=== PATIENT | male | born 1955 | race Caucasian/White ===

== ENCOUNTER 2020-04-29 06:33 | Inpatient (IN) ==
--- NOTE | 2020-04-23 15:51 | Anesthesiology Consultation ---
Date of Service April 23, 2020 Assessment & Plan (1) Encounter for pre-operative examination: Per PAT assessment on 04/23: Travel screen negative. No known COVID-19 positive contacts. No history of COVID-19 testing. No current COVID-19 related symptoms. Chart Review Chart Review: Acceptable Risk for Surgery and Patient NOT seen in Pre Admission Testing History Surgery Operation Date: 04/29/20 09:00 Proposed Procedures p Left Posterior Total Hip Arthroplasty - Hema Chambers DO Height/Weight Height: 6 ft 0.5 in Weight: 120.202 kg Allergies Allergy/AdvReac Type Severity Reaction Status Date / Time No Known Drug Allergies Allergy Verified 04/23/20 14:48 Medications Home Medications Medication Instructions Recorded Confirmed Last Taken allopurinol 300 mg PO QAM 04/23/20 04/23/20 Unknown amlodipine 5 mg PO QAM 04/23/20 04/23/20 Unknown lisinopril 20 mg PO QAM 04/23/20 04/23/20 Unknown simvastatin 20 mg PO QAM 04/23/20 04/23/20 Unknown tramadol 50 mg PO BID PRN 04/23/20 04/23/20 Unknown Past Medical History Medical History Erectile dysfunction (Chronic) Gouty arthritis (Chronic) Hyperlipidemia (Chronic) Hypertension (Chronic) Plantar fasciitis (Chronic) Polyarthralgia (Chronic) Past Family History Family History Mother Myocardial infarction Diabetes Father Prostate cancer Diabetes Denies family history of Colon cancer Ovarian cancer Breast cancer Colorectal cancer Past Surgical History Surgical History Hx of colonoscopy S/P vasectomy Social History Smoking Status: Never smoker Do You Dip or Chew Tobacco: No Hx Alcohol Use: Yes Alcohol type: beer alcohol intake frequency: 3 or more drinks per day Hx Substance Use: No substance use type: does not use Testing Laboratory Results 04/16/20 WBC 9.76 H/H 13.0/38.2 PLATELETS 274 SODIUM 132 POTASSIUM 4.2 CHLORIDE 102 CO2 23 BUN 16 CREATININE 0.99 GLUCOSE 110 HGBA1C 5.0% Electrocardiogram Date: 04/02/20 SR at 82bpm.
--- NOTE | 2020-04-28 09:20 | History & Physical Report ---
Date of Service April 29, 2020 Assessment & Plan (1) Degenerative joint disease of left hip: I have indicated the patient for left total hip replacement. The risks, benefits and complications of surgery were explained to the patient which include but not limited to infection, acute blood loss, DVT/PE, injury to nerves, vessels, bone, soft tissue, arthrofibrosis, chronic pain, failure of the prosthesis, hip dislocation, leg length discrepancy, need for additional surgery, cardiac and pulmonary events and . The patient wished to proceed with surgery and informed consent was obtained at this time. We will plan for ASA BID post-operatively for DVT prophylaxis. Upon discharge the patient will be discharged home with home health services. Appropriate clearances by PCP were obtained. History of Present Illness Chief Complaint: Left hip pain/djd Primary Care Provider: Garry Perez DO The patient is a 65 year old male who presents with complaints of severe left hip pain and DJD. The patient has failed outpatient conservative treatments to this point which included NSAIDs, IA corticosteroid injection, home exercise/walking program. The patient's pain and limited function have progressed to the point where they severely hinder their activities of daily living and they no longer tolerate exercise programs. They are requesting to proceed with total hip replacement surgery. Allergies Allergy/AdvReac Type Severity Reaction Status Date / Time No Known Drug Allergies Allergy Verified 04/29/20 06:59 Home Medications Home Medications Medication Instructions Recorded Confirmed Type allopurinol 300 mg PO QAM 04/23/20 04/29/20 History amlodipine 5 mg PO QAM 04/23/20 04/29/20 History lisinopril 20 mg PO QAM 04/23/20 04/23/20 History simvastatin 20 mg PO QAM 04/23/20 04/23/20 History tramadol 50 mg PO BID PRN 04/23/20 04/29/20 History multivitamin 1 cap PO BID 04/29/20 04/29/20 History sildenafil [Viagra] 50 mg PO DAILY 04/29/20 04/29/20 History Past Med/Surg History Medical History Erectile dysfunction (Chronic) Gouty arthritis (Chronic) Hyperlipidemia (Chronic) Hypertension (Chronic) Plantar fasciitis (Chronic) Polyarthralgia (Chronic) Surgical History Hx of colonoscopy S/P vasectomy Family History Mother Myocardial infarction Diabetes Father Prostate cancer Diabetes Denies family history of Colon cancer Ovarian cancer Breast cancer Colorectal cancer Social History Preferred Language: Setswana Communication Ability: Effective Visual Impairment: No Limitations Hearing Ability: Normal Rubber Trimmer Required: No Beliefs That Will Affect Care: None marital status: Current Living Situation: Spouse current occupational status: employed current occupation: Self-employed mechanical contractor Other Information That Helps Us Care for You: No Feels Safe at Home: Yes Safety Concerns: Feels Safe At This Time Smoking Status: Never smoker Age Quit Using Tobacco: 54 ; packs per day: 1 ; Do You Dip or Chew Tobacco: No ; Second Hand Exposure: No ; Hx Alcohol Use: Yes Alcohol type: beer Alcohol Intake Frequency: Daily Hx Substance Use: No Childhood Exposure to Second-Hand Smoke: No Dental Care, Regularly: No Physical Activity Frequency: Other Physical Activity Frequency Comment: Limited by physical condition, tries to walk. Review of Systems Review of Systems: All systems reviewed & are unremarkable except as noted in HPI & below Constitutional: as per Subjective / HPI Physical Exam Physical Exam: LLE NVSI +EHL/FHL/TA/GS SILT grossly, +2 DP pulse, compartments soft NT, limited painful ROM of the hip, antalgic gait. Constitutional: WD/WN, vitals as above Eyes: PERRL, conjunctivae normal, anicteric sclerae ENMT: external ear and nose normal, oropharynx normal Neck: trachea midline, no thyromegaly Respiratory: normal respiratory effort, lungs clear to auscultation Cardiovascular: RRR, no murmur, no edema Gastrointestinal (Abdomen): normal bowel sounds, soft, nontender, no hepatosplenomegaly Musculoskeletal: no cyanosis or clubbing, extremities motor strength 5/5 Skin: no rashes, warm and dry Neurologic: patellar DTR's 2+ bilat, sensation intact Psychiatric: A+Ox3, euthymic affect Lymphatic: no cervical or axillary lymphadenopathy Results & Data Results & Data ([facility]) Diagnostic Findings Multiple views of the hip demonstrates severe DJD with complete loss of the cayla nt space. +osteophytes, +sclerosis, +subchondral cysts.
[~2020-04-29 06:33] MED LIST: CEFAZOLIN 3000MG 72.5 ML IV SCH; CeleBREX 200 MG CAP PO SCH; FAMOTIDINE 20 MG TAB PO SCH; GABAPENTIN 300 MG CAP PO SCH; LR 500ML BOLUS, THEN 15ML/HR IV SCH; METOCLOPRAMIDE HCL 10 MG TABLET PO SCH; OXYCODONE HCL 10 MG TABCR (OXYCONTIN) PO SCH; ROPIVACAINE 0.5% HCL/PF 150 MG, BUPIVACAINE 0.5% MPF 30 ML, EPINEPHrine 30MG/30ML (OR U... INSTIL SCH; TRANEXAMIC ACID 1,000 MG **IV Intra-op IV SCH; TRANEXAMIC ACID 1,000 MG **IV Pre-op IV SCH; dexAMETHasone 4 MG TAB PO SCH
[2020-04-29 07:19] LABS: Prothrombin Time 10.4 Seconds (9.0-12.0)
[2020-04-29] MEDS ORDERED: BUPIVACAINE 0.5 % 5 MG/1 ML PF 10ML VIAL ONE (07:32)
[2020-04-29] MEDS ORDERED: ORTHO JOINT ANESTHETIC ONE (08:10)
[2020-04-29] MEDS ORDERED: BACITRACIN INJ 50,000 UNIT VIAL ONE (08:10)
[2020-04-29] MEDS ORDERED: ONDANSETRON INJ 2 MG/ML 2 ML VIAL IV PRN ×2 (08:15→12:35)
[2020-04-29] MEDS ORDERED: ATROPINE SULFATE 0.1 MG/ML 10ML SYR IV PRN (08:15)
[2020-04-29] MEDS ORDERED: fentaNYL citrate 100 MCG/2 ML VIAL IV PRN (08:15)
[2020-04-29] MEDS ORDERED: ePHEDrine sulfate 50 MG/ML AMP IV PRN (08:15)
[2020-04-29] MEDS ORDERED: LIDOCAINE 2% 20 MG/ML 5 ML SYR IV ONE (08:46)
[2020-04-29] MEDS ORDERED: PROPOFOL IV EMULSION 10 MG/ML 20 ML VIAL IV ONE ×3 (08:46→10:57)
[2020-04-29] MEDS ORDERED: fentaNYL citrate 100 MCG/2 ML VIAL ONE (08:47)
[2020-04-29] MEDS ORDERED: MIDAZOLAM HCL 1 MG/ML 2ML VIAL ONE (08:47)
[2020-04-29] MEDS ORDERED: LIDOCAINE HCL 2% 2 ML VIAL/AMP(20MG/ML) INFIL ONE ×2 (08:50)
--- NOTE | 2020-04-29 08:56 | History & Physical Bridge Note ---
Date of Service April 29, 2020 History & Physical Bridge Note I have examined the patient, reviewed the History & Physical and in the interval since the performance of the History & Physical I have noted the following changes of clinical significance: no changes noted
[2020-04-29] MEDS ORDERED: KETAMINE HCL INJ 50 MG/ML 10 ML VIAL ONE (09:43)
--- NOTE | 2020-04-29 10:49 | Post Operative Brief Note ---
Immediate Post Op Note v1 Date of Surgery April 29, 2020 Pre & Post Diagnosis Operation Date: 04/29/20 09:10 Pre-Op Diagnosis: Unilateral Primary Osteoarthritis, Left Hip Post-Op Diagnosis: Unilateral Primary Osteoarthritis, Left Hip I identified the patient and participated in the time-out.: Yes Procedure Operation Date: 04/29/20 09:10 Actual Procedures p Left Posterior Total Hip Arthroplasty(Left) - Hema Chambers DO Surgeon Hema Chambers DO Fitter Up Charles Carpio Estimated Blood Loss 225 Findings Consistent with Post-Op Diagnosis Fluids 1450 Specimens femoral head Anesthesia Type Spinal MAC Complications none Disposition Disposition: Recovery Room Overlapping Procedure I was present for: the critical portions of procedure. I was immediately available: during the entire case. Back up surgeon: was not required during procedure.
[2020-04-29] MEDS ORDERED: PHENYLEPHRINE HCL 10 MG/ML VIAL ONE (10:52)
--- NOTE | 2020-04-29 10:54 | Operative Report ---
Post Operative Report Pre & Post Diagnosis Operation Date: 04/29/20 09:10 Pre-Op Diagnosis: Unilateral Primary Osteoarthritis, Left Hip Post-Op Diagnosis: Unilateral Primary Osteoarthritis, Left Hip I identified the patient and participated in the time-out.: Yes Procedure Operation Date: 04/29/20 09:10 Actual Procedures p Left Posterior Total Hip Arthroplasty(Left) - Hema Chambers DO Surgeon Hema Chambers DO Computerized [employer] Recorder Charles Carpio Estimated Blood Loss 225 Findings Consistent with Post-Op Diagnosis Fluids 1450 cc LR Specimens femoral head Anesthesia Type Spinal MAC Complications none Disposition Disposition: Recovery Room Indications The patient is a 65-year-old male who presents with severe progressive right hip DJD who has failed outpatient conservative treatments. I indicated the patient for a total hip replacement and the risks and benefits were explained in detail which included but not limited to infection, bleeding, blood clot, damage to surrounding bone, nerves, vessels, soft tissue, hip dislocation, failure of the prosthesis, leg length discrepancy, need for additional surgery and . The patient agreed to proceed with replacement of the hip and informed consent was obtained. Appropriate clearances were obtained. Description of Procedure COMPONENTS USED: Jm Biomet hip system: Acetabulum size 58 G7 osteo-ti, femur size 12.5 extended offset, femoral head 36+7, liner 5836, acetabular screw 30 mm x 1. Following induction of adequate spinal anesthesia, the patient was transferred to the OR table and placed in lateral decubitus position with right hip down. The left hip was prepped and draped in the typical sterile fashion. A timeout was performed, patient identified and site matheus confirmed. Appropriate antibiotics were given. A standard posterolateral/Katja-Langenbeck incision was made. Subcutaneous tissue was sharply dissected. Electrocautery was utilized for hemostasis. The fascia was incised throughout the length of the wound and retracted with the Charnley retractor. The bursa was taken down and the short external rotators were identified. The piriformis was tagged with #1 Vicryl. The short external rotators and capsule were divided from the posterior aspect of the femur using electrocautery. The posterior capsule was tagged with #1 Vicryl. Both external rotators and posterior capsule were swept posterior and protected, along with protecting the sciatic nerve. The hip was dislocated by flexion and internally rotation in a controlled manner and exposure of the femoral neck was gained with an old-style Hohmann and a blunt cobra retractor. A femoral cutting guide was utilized for making the appropriate level femoral neck cut with reciprocating saw. The femoral head was removed, measured and reserved on the back table. Next, attention was turned to the acetabulum. A posterior and anterior offset retractor was placed to gain adequate exposure. Acetabular labrum as well as posterior capsule elements were removed using electrocautery and forceps. Fovea centralis was cleared of all soft tissue. Sequential reaming was performed starting at 48 mm and carried up to a 57 mm and decision was made to proceed with impaction of a 50 mm G7 osteo-ti metal cup. This was impacted and held using a single 30 mm bone screw. The trial aceta bular liner was placed at this time. Next, attention was turned to the proximal femur where a Bovie and pickup was used to further clear short external rotators from their insertion on the femur. Box osteotome and canal finder was used to gain access to the femoral canal and the lateral reamer on power was used to further open the proximal lateral canal. Sequentially rasping was carried up to a 12.5 which gave good fit and fill of the proximal femur. A trial reduction was carried out with a extended offset femoral neck component a 36+0 mm femoral head. Sequential trialing of neck length were performed a 36+7 was found to be stable in all degrees of rotation with no [id number] impingement. The hip was dislocated, trial components were removed and access to the acetabulum was re-established. The trial liner was removed and the cup was irrigated to ensure all debris was removed. The final acetabular liner was inserted and properly seated in the cup. Access to the femur was once more gained and the size 12.5 femoral stem with extended offset was impacted into position. The hip was once more assessed with the 36+ mm femoral head. Stability was accessed and found to be excellent with equal leg lengths. The hip was dislocated for the last time and the final 36+ ceramic femoral head was impacted in place and the hip was reduced. Range of motion was checked once again and found to be stable. A Betadine soak was performed. After 3 minutes, the hip was once more irrigated with copious sterile saline solution with bacitracin. The leslie-incisional soft tissue was injected utilizing [place] ortho mix which includes a combination of Ropivicaine 0.5% 150mg, Bupivicaine 0.5%/Epinephrine 1:200,000 30ml, Toradol 30mg, Dexamethasone 4mg, Ketamine 10mg, Clonidine 100mcg and NSS 30ml Orthomix solution. The piriformis, external rotators and capsule were repaired to the greater trochanter through bone tunnels using #5 FiberWire. The fascia was closed using #1 Vicryl, subcutaneous tissue was closed using 2-0 Vicryl, and skin was closed with annemarie. Sterile dressings were applied which included Silverlon. The patient tolerated the procedure well and was transported to PACU in stable condition. Due to the complex nature of the procedure, the entire surgery was performed with the operational assistance of Charles Carpio PA-C. The sales assistant displays, under direct supervision, was involved in the actual performance of all aspects of the surgical procedure including patient positioning, hemostasis, tissue retraction, instrument management and wound closure. I attest to the content of the Intraoperative Record and any orders documented therein. Any exceptions are noted below.
--- NOTE | 2020-04-29 11:46 | XRay Report ---
AP PELVIS, CROSSTABLE LATERAL LEFT HIP History: Left total hip arthroplasty. Degenerative arthritis. Postop. FINDINGS: The patient is status post a left total hip arthroplasty. The hardware is intact. No fractu re or dislocation. Skin annemarie are in place. IMPRESSION: Left total hip arthroplasty. No evidence for hardware complication. ACT 112: Negative or not required by law. Electronically signed by: Celso Freeman M.D. 04/29/2020 11:45 AM
[2020-04-29] MEDS ORDERED: MAGNESIUM HYDROXIDE SUSP 30 ML UDC PO PRN (12:35)
[2020-04-29] MEDS ORDERED: HYDROmorphone INJ 0.5 MG/0.5 ML SYR IV PRN (12:35)
[2020-04-29] MEDS ORDERED: CEFAZOLIN 3000MG/72.5 ML BAG IV SCH (12:35)
[2020-04-29] MEDS ORDERED: bisacodyL 10 MG SUPP PR PRN (12:35)
[2020-04-29] MEDS ORDERED: NALOXONE HCL 0.4 MG/1 ML VIAL/CARP IV PRN (12:35)
[2020-04-29] MEDS ORDERED: METOCLOPRAMIDE HCL INJ 5 MG/ML 2 ML VIAL IV PRN (12:35)
[2020-04-29] MEDS: ACETAMINOPHEN 500 MG TAB PO SCH ×2 (13:55→21:56)
[2020-04-29] MEDS: SODIUM CHLORIDE 0.9% 1000ML 1,000 ML IV SCH ×2 (13:55→23:37)
--- NOTE | 2020-04-29 14:24 | Anesthesiology Progress Note ---
Date of Service April 29, 2020 Anesthesia Post Procedure Vital Signs Vital Signs: Temp Pulse Pulse Resp BP Pulse Ox 04/29/20 13:28 70 18 146/78 H 100 04/29/20 13:06 36.5 C 75 18 143/83 H 99 04/29/20 12:40 36.7 C 76 18 125/76 100 04/29/20 12:19 69 18 129/71 97 04/29/20 12:10 36.4 C L 65 20 125/75 97 04/29/20 12:00 68 20 123/79 97 04/29/20 11:50 65 18 123/71 97 04/29/20 11:40 73 17 129/77 97 04/29/20 11:30 78 14 128/67 97 04/29/20 11:20 77 12 108/72 99 04/29/20 11:10 36.2 C L 82 16 104/64 99 04/29/20 07:13 36.8 C 90 16 150/82 H 97 Pain Intensity Bilateral Ankle: Pain Intensity: 0 Transfer of Care Handoff Completed per policy Notes Mental Status: alert / awake / arousable and participated in evaluation Patient Amnestic to Procedure: Yes Nausea / Vomiting: adequately controlled Pain: adequately controlled Airway Patency, RR, SpO2: stable & adequate BP & HR: stable & adequate Hydration State: stable & adequate Neuraxial Anesthesia: was administered and sensory block is resolving Anesthetic Complications: no major complications apparent and Pt Satisfied with anesthetic care
--- NOTE | 2020-04-29 15:40 | Orthopedic Progress Note ---
Date of Service April 29, 2020 Assessment & Plan (1) Degenerative joint disease of left hip: s/p Left TOBIAS -ancef x 24 -DVT ppx: SCDs, TEDs, ASA BID -WBAT LLE -Posterior hip precautions -PT/OT -PO XR demonstrates well aligned well fixed total hip prothesis without fracture/dislocation -am labs -DC planning Admission and Anticipated Discharge Date Admission Date: April 29, 2020 Subjective Post Operative Progress Note Patient seen sitting up in bed, comfortable, denies complaints, pain well controlled, no acute issues. Review of Systems Review of Systems: All systems reviewed & are unremarkable except as noted in HPI & below Constitutional: as per Subjective / HPI Physical Exam Physical Exam: LLE NVSI +EHL/FHL/TA/GS SILT grossly, +2 DP pulse, compartments soft NT, dressing cdi. Constitutional: WD/WN, vitals as above Results & Data ([place]) Vital Signs (Past 12 Hours) Vital Signs Temp Pulse Pulse Resp BP Pulse Ox 04/29/20 13:28 70 18 146/78 H 100 04/29/20 13:06 36.5 C 75 18 143/83 H 99 04/29/20 12:40 36.7 C 76 18 125/76 100 04/29/20 12:19 69 18 129/71 97 04/29/20 12:10 36.4 C L 65 20 125/75 97 04/29/20 12:00 68 20 123/79 97 04/29/20 11:50 65 18 123/71 97 04/29/20 11:40 73 17 129/77 97 04/29/20 11:30 78 14 128/67 97 04/29/20 11:20 77 12 108/72 99 04/29/20 11:10 36.2 C L 82 16 104/64 99 04/29/20 07:13 36.8 C 90 16 150/82 H 97
[2020-04-29] MEDS: CEFAZOLIN 3,000 MG in DEXTROSE 5% 50 ML IV SCH (17:03)
[2020-04-29] MEDS: KETOROLAC TROMETHAMINE 15 MG/ML VIAL IV SCH (20:33)
[2020-04-29] MEDS: DOCUSATE SODIUM 100 MG CAP PO SCH (20:34)
[2020-04-29] MEDS ORDERED: SENNA 8.6 MG TAB PO SCH (21:00)
[2020-04-29] MEDS: OXYCODONE HCL IR 5 MG TAB (IMMEDIATE RELEASE) PO PRN (23:38)
[2020-04-30] MEDS: KETOROLAC TROMETHAMINE 15 MG/ML VIAL IV SCH ×3 (02:13→13:39)
[2020-04-30] MEDS: CEFAZOLIN 3,000 MG in DEXTROSE 5% 50 ML IV SCH (02:13)
[2020-04-30 05:09] LABS: Hematocrit (blood only) 31.1 % (42-52); Hemoglobin 10.5 g/dL (14.0-18.0); Immature Granulocytes # (auto) 0.02 K/uL (0.00-0.02); Immature Granulocytes % (auto) 0.2 %; Lymphocytes # (auto) 0.53 K/uL (1.2-3.4); Lymphocytes % (auto) 5.6 %; Mean Corpuscular Hemoglobin 34.3 pg (25-34); Mean Corpuscular Hgb Conc 33.8 g/dL (32-36); Mean Corpuscular Volume 101.6 fL (80-100); Mean Platelet Volume 10.4 fL (7.4-10.4); Monocytes # (auto) 0.44 K/uL (0.11-0.59); Monocytes % (auto) 4.6 %; Neutrophils # (auto) 8.54 K/uL (1.4-6.5); Neutrophils % (auto) 89.6 %; Platelet Count 162 K/uL (130-400); RDW Coefficient of Variation 12.6 % (11.5-14.5); RDW Standard Deviation 46.1 fL (36.4-46.3); Red Blood Count 3.06 M/uL (4.7-6.1); White Blood Count 9.53 K/uL (4.8-10.8)
[2020-04-30 05:34] LABS: BUN Creatinine Ratio 21.1 (10-20); Calcium 7.8 mg/dl (8.5-10.1); Creatinine Clr Calc Pharmacy 95.1 ml/min; Est GFR (African American) 84.9; Est GFR (Non-African American) 73.3; Potassium 4.3 mmol/L (3.5-5.1)
[2020-04-30] MEDS: ACETAMINOPHEN 500 MG TAB PO SCH ×2 (05:55→13:39)
--- NOTE | 2020-04-30 07:36 | Orthopedic Progress Note ---
Date of Service April 30, 2020 Assessment & Plan (1) Degenerative joint disease of left hip: s/p Left TOBIAS POD#1 -ancef x 24 -DVT ppx: SCDs, TEDs, ASA BID -WBAT LLE -Posterior hip precautions -PT/OT -PO XR demonstrates well aligned well fixed total hip prothesis without fracture/dislocation -am labs - as above, hgb 10.5 -DC planning - home with Admission and Anticipated Discharge Date Admission Date: April 29, 2020 Subjective Post Operative Progress Note Patient seen sitting up in bed, comfortable, denies complaints, pain well controlled, no acute issues. Denies F/C/N/V/SOB/CP. Review of Systems Review of Systems: All systems reviewed & are unremarkable except as noted in HPI & below Constitutional: as per Subjective / HPI Physical Exam Physical Exam: LLE NVSI +EHL/FHL/TA/GS SILT grossly, +2 DP pulse, compartments soft NT, dressing cdi. Constitutional: WD/WN, vitals as above Results & Data ([place]) Vital Signs (Past 12 Hours) Vital Signs Temp Pulse Resp BP Pulse Ox 04/30/20 03:27 36.6 C 66 16 133/71 97 04/29/20 23:32 36.6 C 76 16 156/91 H 97 Laboratory Results 04/30/20 04/30/20 04/29/20 Range/Units 04:22 04:22 06:53 WBC 9.53 (4.8-10.8) K/uL RBC 3.06 L (4.7-6.1) M/uL Hgb 10.5 L (14.0-18.0) g/dL Hct 31.1 L (42-52) % MCV 101.6 H (80-100) fL MCH 34.3 H (25-34) pg MCHC 33.8 (32-36) g/dL RDW Std Deviation 46.1 (36.4-46.3) fL RDW Coeff of Willie 12.6 (11.5-14.5) % Plt Count 162 (130-400) K/uL MPV 10.4 (7.4-10.4) fL Immature Gran % (Auto) 0.2 % Neut % (Auto) 89.6 % Lymph % (Auto) 5.6 % Mcnairy % (Auto) 4.6 % Eos % (Auto) 0.0 % Baso % (Auto) 0.0 % Immature Gran # (Auto) 0.02 (0.00-0.02) K/uL Neut # (Auto) 8.54 H (1.4-6.5) K/uL Lymph # (Auto) 0.53 L (1.2-3.4) K/uL Mcnairy # (Auto) 0.44 (0.11-0.59) K/uL Eos # (Auto) 0.00 (0-0.5) K/uL Baso # (Auto) 0.00 (0-0.2) K/uL Sodium 135 L (136-145) mmol/L Potassium 4.3 (3.5-5.1) mmol/L Chloride 106 (98-107) mmol/L Carbon Dioxide 23 (21-32) mmol/L Anion Gap 6.0 (3-11) BUN 22 H (7-18) mg/dl Creatinine 1.06 (0.6-1.4) mg/dl Est Cr Clr Drug Dosing 95.1 ml/min Est GFR ( Amer) 84.9 Est GFR (Non-Af Amer) 73.3 BUN/Creatinine Ratio 21.1 H (10-20) Glucose 134 H (70-99) mg/dl Calcium 7.8 L (8.5-10.1) mg/dl Blood Type A Positive Antibody Screen NEGATIVE
[2020-04-30] MEDS: DOCUSATE SODIUM 100 MG CAP PO SCH (08:41)
[2020-04-30] MEDS: OXYCODONE HCL IR 5 MG TAB (IMMEDIATE RELEASE) PO PRN (08:43)
[2020-04-30] MEDS ORDERED: allopurinoL 300 MG TAB PO SCH (09:00)
[2020-04-30] MEDS ORDERED: AMLODIPINE BESYLATE 5 MG TAB PO SCH (09:00)
[2020-04-30] MEDS ORDERED: SIMVASTATIN 20 MG TAB PO SCH (09:00)
[2020-04-30] MEDS ORDERED: MULTIVITAMIN TAB PO SCH (09:00)
[2020-04-30] MEDS ORDERED: ASPIRIN 325 MG ECTAB PO SCH (09:00)
[2020-04-30] MEDS ORDERED: lisinopriL 20 MG TAB PO SCH (09:00)
--- NOTE | 2020-04-30 17:02 | Discharge Summary ---
Date of Service April 30, 2020 Admission HPI Per Admitting Provider The patient is a 65 year old male who presents with complaints of severe left hip pain and DJD. The patient has failed outpatient conservative treatments to this point which included NSAIDs, IA corticosteroid injection, home exercise/walking program. The patient's pain and limited function have progressed to the point where they severely hinder their activities of daily living and they no longer tolerate exercise programs. They are requesting to proceed with total hip replacement surgery. Principal Diagnosis Left total hip replacement Discharge Exam LLE NVSI +EHL/FHL/TA/GS SILT grossly, +2 DP pulse, compartments soft NT, dressing cdi. Constitutional WD/WN, vitals as above Discharge Data Allergies Allergy/AdvReac Type Severity Reaction Status Date / Time No Known Drug Allergies Allergy Verified 04/29/20 06:59 Consultations 04/30/20 08:00 Consult Case Management - Discharge Planning Routine Procedures Performed Operation Date: 04/29/20 09:10 Actual Procedures p Left Posterior Total Hip Arthroplasty(Left) - Hema Chambers DO Hospital Course (1) Degenerative joint disease of left hip: The patient is a 65 -year-old male who presents with long standing history of severe left hip DJD and failed outpatient conservative treatments. The patient's symptoms have progressed to the point where it has been difficult to perform even normal activities of daily living. I indicated the patient for a left total hip arthroplasty, the risks, benefits and complications of the procedure include but not limited to infection, bleeding, damage to bone, nerves, vessels, surrounding soft tissue, may develop blood clots, loss of function, leg length discrepancy, dislocation, failure of the components, loosening of the components, the need for additional surgery and . The patient wished to proceed with surgery at this time and informed consent was obtained. Hospital Course: On 04/29/20 the patient was taken to the operating room, adequate anesthesia adm inistered and underwent a left total hip arthroplasty. The patient tolerated the procedure well and was taken to the PACU in stable condition. Post- operatively the patient was started on a DVT ppx medication and given appropriate IV antibiotics. Consults were placed to physical therapy, occupational therapy and case management. On POD#1, the patient did well overnight and their pain was well controlled. Labs were drawn and the Hgb was 10.5. The patient progressed well with PT. Dressings were changed at this time and the incision was clean, dry and intact. The patients hospital stay was relatively uneventful and they were deemed stable by the orthopedic team and consultants to be discharged home with HH on 04/30/20. Discharge Instructions: Upon discharge the patient may weight bear as tolerates through their operative extremity. They were instructed to keep the incision clean and dry at all times. The patient may shower but should not submerge the incision, avoid bathing, pools and hot tubes. The patient was given a script for pain medication and should take as instructed. The patient was given a script for DVT ppx ASA BID and should take as directed. The patient was instructed to not drive or travel for long distances until cleared to do so. If the patient develops any symptoms of fevers, chills, nausea, vomiting, increased redness, swelling, pain or drainage from the surgical site, they should notify the office and/or proceed to the nearest emergency room. The patient should follow up in 10-14 days after surgery for their routine post-operative follow-up appointment and should call the office to confirm the date and time. s/p Left TOBIAS POD#1 -ancef x 24 -DVT ppx: SCDs, TEDs, ASA BID -WBAT LLE -Posterior hip precautions -PT/OT -PO XR demonstrates well aligned well fixed total hip prothesis without fracture/dislocation -am labs - as above, hgb 10.5 -DC planning - home with Total Time Total Time Spent Total Time Spent (In Minutes): 30 Discharge Plan Discharge Items Patient Disposition: Home - Home Health Services Reason For Visit: Unilateral Primary Osteoarthritis, Left Hip Discharge Diagnosis: Left total hip replacement Condition on Discharge: Good Activity: Per Instructions section Lifting: Wait until after follow-up appointment Bathing: Keep incision dry Bathing Comment: No bathing pools or hot tubs Sexual Activity: Wait until after follow-up appointment Exercise/Sports: Wait until after follow-up appointment Driving/Machine Use: No driving Weightbearing: Full weightbearing Non-emergency contact: Primary Care Provider and Surgeon Call non-emergency contact if: you have any medication questions, your symptoms worsen, your pain is not controlled, your pain is worsening, your pain is unu sual for you, your pain is concerning for you, you have a fever, your temperature is above 101, your wound has increased redness, your wound has increased drainage and your wound pain has increased Follow-up/Referrals: Garry Perez, [Primary Care Provider] - Diet: Regular Addtl Attending Provider Instructions: ACTIVITY RECOMMENDATIONS: SELF CARE INSTRUCTIONS AFTER TOTAL HIP REPLACEMENT Until the incision and soft tissues around your hip have healed, there is a possibility that the hip prosthesis could dislocate. A. Observe the following precautions to prevent dislocation: 1. Don't bend your hip greater than 90 degrees. 2. Avoid crossing your legs or ankles while standing or lying. 3. Sit with your feet placed 6 inches apart. 4. When sitting, keep your knees below your hips. Sit on a firm surface, avoid deep, soft chairs and couches. Use an elevated toilet seat in the bathroom. 5. Don't bend over at the waist. Use a long handled shoehorn and a sock aid to help you put on your shoes and socks. A employee benefits administrator can help you bulk picker objects that are too high or too low to reach. 6. Keep car riding to a minimum for at least one month after surgery. B. Your balance may be shaky for a while. Use crutches or a walker until directed by your doctor. C. Use hand rails when walking on stairs. D. Wear low heeled shoes with non-slip soles. E. Be sure that your floors are free of things that could trip you - throw rugs, electrical cords, small objects. Avoid wet and waxed floors, especially with crutches and canes. F. Try to walk several times a day with rest periods between. G. Continue with all the exercises taught to you in the hospital. Again, make walking a part of your daily routine. SPECIAL CARE INSTRUCTIONS: VERY IMPORTANT TO READ AND REVIEW A. You may still be at risk for phlebitis and blood clots. 1. Wear surgical stockings (JULISA hose) for 2 weeks after surgery to improve circulation and reduce swelling. 2. Take Aspirin 325mg twice daily for 4 weeks or as directed by your doctor. This is your blood thinner. 3. High risk patients may be prescribed a stronger blood thinner if n ecessary. 4. If you are on Coumadin normally, your family doctor/compliance project manager should monitor your blood work. Expect a phone call the day of or the day after bloodwork is drawn to adjust your dosage. B. You must take antibiotics before having dental work, bladder, bowel and other surgery. Your doctor will provide you with a permanent card to carry desc ribing precautions. C. Call [facility] if you have a fever, redness or swelling around the incision, cloudy drainage from incision, or sudden increase in pain in your hip, not relieved by your regular pain medication. D. Please call the office at if you have any concerns or quest ions about your operation or recovery. * YOU MAY SHOWER, NO TUB BATHS UNTIL CLEARED BY YOUR DOCTOR. * WEAR JULISA HOSE 20 HOURS PER DAY FOR 2 WEEKS. * YOU SHOULD USE A WALKER OR CRUTCHES FOR 2-4 WEEKS. THIS WILL HELP PREVENT STRAIN ON YOUR HIP MUSCLE AND ALLOW IT TO HEAL PROPERLY. YOU MAY WEAN TO A CANE TOLERATED. * MOST PATIENTS WILL HAVE HOME NURSING FOR THERAPY. IF YOU DECIDE TO DO OUTPATIENT PHYSICAL THERAPY, PLEASE SCHEDULE THIS 3 TIMES PER WEEK. * YOU MAY HAVE A LARGE, BAND-ANKIT LIKE DRESSING (SILVERON). THIS WILL REMAIN ON YOUR INCISION FOR 7 DAYS, THEN CAN BE REMOVED. IF INCISION IS LEAKING THROUGH DRESSING, PLEASE CALL THE OFFICE . FOLLOW UP VISIT: If appointment is not already scheduled: Please call [facility] to make a follow-up appointment for 2 weeks after your surgery at . Pending Studies at Discharge: No Stand-Alone Forms: My [facility], Opioid Pain Management, Smoking Cessation Medications and DC Order Prescriptions: New celecoxib [Celebrex] 200 mg Capsule 200 mg PO BID PRN (Reason: pain/inflammation) Qty: 28 RF: 0 acetaminophen 500 mg Tablet 1,000 mg PO Q8 PRN (Reason: pain) Qty: 90 RF: 0 aspirin 325 mg Tablet,Delayed Release (Dr/Ec) 325 mg PO BID Qty: 56 RF: 0 oxycodone 5 mg Tablet 5 mg PO Q6H MDD 4 PRN (Reason: pain) Qty: 30 RF: 0 sennosides [Senokot] 8.6 mg Tablet 17.2 mg PO HS PRN (Reason: constipation) Qty: 28 RF: 0 Continued lisinopril 20 mg tablet 20 mg PO QAM RF: 0 amlodipine 5 mg tablet 5 mg PO QAM RF: 0 simvastatin 20 mg tablet 20 mg PO QAM RF: 0 allopurinol 300 mg tablet 300 mg PO QAM RF: 0 multivitamin Capsule 1 cap PO BID RF: 0 Discontinued tramadol 50 mg tablet 50 mg PO BID PRN (Reason: Pain) RF: 0 sildenafil [Viagra] 100 mg Tablet 50 mg PO DAILY RF: 0 Discharge Orders: Discharge Order (Routine); Ordered 04/30/20 Ordered By: Hema Quach/Other Patient Handouts: Understanding Hip Replacement, Hip Replace At Home, Hip Replace Total Dc Admission Data Admit Date/Time: 04/29/20 11:15 Attending Provider: Hema Chambers Admit Provider: Hema Chambers Primary Care Provider: Garry Perez Other Interventions: Discharge Summary Assessment (RN) Last Done: 04/30/20 13:07 DC Date/Time DO NOT enter until pt leaves facility: 04/30/20 14:50
[2020-04-30] MEDS ORDERED: CeleBREX 200 MG CAP PO SCH (21:00)
== END 2020-04-30 14:50 | disposition home health service (06) | DRG 470 ==
LOC: ASU 06:33 → 3E 11:15

== ENCOUNTER 2020-07-05 11:58 | Observation (INO) ==
[2020-07-05] MEDS ORDERED: LIDOCAINE/EPINEPH/TETRACAINE 1 EA SYR EXT ONE (12:11)
[2020-07-05] MEDS ORDERED: LIDOCAINE/EPINEPH/TETRACAINE 1 EA SYR EXT STA (12:12)
--- NOTE | 2020-07-05 12:50 | CT Scan Report ---
HEAD CT NONCONTRAST CT DOSE: 537.48 mGy.cm HISTORY: Closed head injury. TECHNIQUE: Multiaxial CT images of the head were performed without the use of intravenous contrast. A utomated exposure control was utilized for this study. A dose lowering technique was utilized adheri ng to the principles of ALARA. Comparison: None. Findings: Single opacified left ethmoid air cell. Otherwise, the paranasal sinuses and mastoid air ce lls are clear. Left posterior scalp swelling with a small laceration. The calvarium and skull base ar e intact. The ventricles and sulci are within normal limits. There is no mass, hematoma, midline shif t, or acute infarct. Impression: No acute intracranial abnormality. Left posterior scalp swelling with a small laceration. ACT 112: Negative or not required by law. Electronically signed by: Celso Freeman M.D. 07/05/2020 12:49 PM
[2020-07-05 13:08] LABS: Basophils # (auto) 0.04 K/uL (0-0.2); Basophils % (auto) 0.6 %; Eosinophils # (auto) 0.18 K/uL (0-0.5); Eosinophils % (auto) 2.5 %; Hematocrit (blood only) 40.1 % (42-52); Hemoglobin 13.8 g/dL (14.0-18.0); Immature Granulocytes # (auto) 0.02 K/uL (0.00-0.02); Immature Granulocytes % (auto) 0.3 %; Lymphocytes # (auto) 1.16 K/uL (1.2-3.4); Lymphocytes % (auto) 16.4 %; Mean Corpuscular Hgb Conc 34.4 g/dL (32-36); Mean Corpuscular Volume 98.8 fL (80-100); Mean Platelet Volume 9.9 fL (7.4-10.4); Monocytes # (auto) 0.53 K/uL (0.11-0.59); Monocytes % (auto) 7.5 %; Neutrophils # (auto) 5.15 K/uL (1.4-6.5); Neutrophils % (auto) 72.7 %; Platelet Count 158 K/uL (130-400); RDW Coefficient of Variation 12.5 % (11.5-14.5); RDW Standard Deviation 45.3 fL (36.4-46.3); Red Blood Count 4.06 M/uL (4.7-6.1); White Blood Count 7.08 K/uL (4.8-10.8)
[2020-07-05 13:26] LABS: Alanine Aminotransferase 27 U/L (12-78); Albumin Level 3.3 gm/dl (3.4-5.0); Aspartate Aminotransferase 33 U/L (15-37); BUN Creatinine Ratio 12.2 (10-20); Blood Urea Nitrogen 9 mg/dl (7-18); Calcium 8.1 mg/dl (8.5-10.1); Carbon Dioxide 21 mmol/L (21-32); Chloride 103 mmol/L (98-107); Creatinine Clr Calc Pharmacy 131.2 ml/min; Est GFR (African American) 110.4; Est GFR (Non-African American) 95.2; Glucose 98 mg/dl (70-99); Magnesium 1.8 mg/dl (1.8-2.4); Potassium 3.6 mmol/L (3.5-5.1); Sodium 134 mmol/L (136-145)
[2020-07-05 13:37] LABS: Albumin Globulin Ratio 0.9 (0.9-2); Alkaline Phosphatase 85 U/L (45-117); Globulin 3.7 gm/dl (2.5-4.0); Troponin I < 0.015 ng/ml (0-0.045)
[2020-07-05 14:03] LABS: D Dimer 1070 ug/L FEU (0-500)
[2020-07-05] MEDS ORDERED: IOVERSOL 100ml IV ONE (14:28)
--- NOTE | 2020-07-05 14:44 | CT Scan Report ---
CHEST CTA for PULMONARY ARTERIES CT DOSE: 974.87 mGy.cm HISTORY: syncope, +dimer ? PE TECHNIQUE: Multiaxial CT images of the chest were performed following the intravenous administration of contrast to evaluate the pulmonary arteries. Maximal intensity projection images were also obtaine d. A dose lowering technique was utilized adhering to the principles of ALARA. COMPARISON STUDY: None. FINDINGS: Normal caliber thoracic aorta with no evidence for dissection. No filling defects within th e pulmonary arteries to suggest pulmonary embolus. No pleural or pericardial effusions. The heart is normal in size. Normal caliber esophagus. Limited views of the upper abdomen demonstrate fatty change within the liver and a normal spleen. Normal adrenal glands. No mediastinal or hilar lymphadenopathy . No suspicious lytic are blastic osseous lesions. No pneumothorax. The central airways are patent. L inear densities at the lung bases favor subsegmental atelectasis. Small patchy groundglass densities within the lower lobes posteriorly also favor mild dependent change. Otherwise, no areas of consolida tion to suggest pneumonia. No evidence for pulmonary edema. IMPRESSION: 1. No evidence for pulmonary embolus. 2. Bibasilar densities favor atelectasis/dependent change. 3. Hepatic steatosis. ACT 112: Negative or not required by law. Electronically signed by: Celso Freeman M.D. 07/05/2020 2:42 PM
--- NOTE | 2020-07-05 14:51 | Emergency Department Note ---
Impression & Plan Syncope and collapse, CHI (closed head injury), Laceration of occipital scalp, D-dimer, elevated ED Provider Note INFORMANT: [Patient] EMS ED PROVIDER(S): Heber Alas MD CHIEF COMPLAINT: Syncope PLAN: Disposition: Admitted Condition: [Good] MEDICAL DECISION MAKING: Patient presented with a syncopal episode. He suffered a large scalp laceration. ECG showed a normal sinus rhythm. The patient had a scalp laceration repair. CT scan of the head was negative for acute process except for the scalp laceration. His troponin was negative. Mild anemia on CBC. Chemistry panel unremarkable. The patient did have a positive d-dimer. CT PE study was performed and negative for acute process. Ultrasound imaging of the lower extremities is pending. Given the abrupt onset without significant prodrome to the syncopal episode further management in the hospital was felt to be appropriate. [facility] Case was discussed with Dr. Basilio. Triage Nursing notes reviewed and agree them. [Additional history obtained from] EMS Vital Signs: reviewed and remarkable for [no significant abnormalities] Differential diagnosis: Vasovagal event, dehydration, infection, hypoglycemia, electrolyte abnormalities, cardiac sources, intracerebral event, pulmonary embolism, seizure, toxicologic, neurologic, as well as other pathologies. Diagnostics interpreted by me: ECG: ECG showed a sinus rhythm at 76 bpm. There was increased R to S ratio in V1. No ST elevation. Normal axis. No PACs or PVCs. Cardiac Monitoring: Cardiac monitoring ordered by me: The patient was placed on continuous cardiac monitoring and observed. It revealed a normal sinus rhythm at 80 beats per minute without ectopy or evidence of dysrhythmia. Imaging studies: CT PE study negative for acute process Head CT: A noncontrast CT scan of the head was performed and was negative for tumor, fracture, intracranial hemorrhage, or other acute pathology. Consultation(s): [facility] HPI: The patient is a 65 year old male who presents to the Emergency Room with complaints of syncopal episode. This started abruptly this morning and is now resolved. The patient also notes the following associated symptoms, laceration to the back of his head. The patient has been given no medication for relieving factors. Current pain is rated as 4/10. Patient states he was feeling well this morning. He was in his driveway talking to a neighbor and then suddenly felt ill and reportedly collapsed. EMS noted that the patient fell directly back and struck his head. He was unconscious for at least 2 minutes. He suffered a large laceration to the posterior scalp. Pressure was applied. EMS was summoned and he was brought to the ER for evaluation. The patient notes occasionally feeling dizzy from time to time. Patient recently underwent hip surgery 2 months ago. Pt denies fevers, chills, diaphoresis, visual changes, neck pain, chest pain, breathing difficulties, nausea, vomiting, abdominal pain, back pain, melena, hematochezia, urinary symptoms, numbness, weakness, lymphadenopathy, rash, or other complaints. ROS: See above HPI for pertinent positives & negatives. A total of [10] systems reviewed and were otherwise negative. PAST MEDICAL HISTORY:[See Below] hypertension, hyperlipidemia PAST SURGICAL HISTORY:[See Below] FAMILY HISTORY:[See Below] SOCIAL HISTORY:[See Below] lives with family HOME MEDICATIONS:[See Below] ALLERGIES:[See Below] VITALS:[See Below] PHYSICAL EXAMINATION: GENERAL: Awake, alert, well-appearing, in no distress HENT: Normocephalic, large laceration to the back of the scalp, approximate 8 cm. Oropharynx unremarkable. EYES: Normal conjunctiva. Sclera non-icteric. NECK: Inspection normal. Non-tender. Supple. No nuchal rigidity. FROM. No masses. RESPIRATORY: Clear to auscultation. No wheezes. No rales. Normal respiratory effort. CARDIAC: Normal rate. Normal rhythm. No murmurs. No rubs. Extremities warm and well perfused. Pulses equal. No JVD. GI: Soft, non-distended. No tenderness to palpation. No rebound or guarding. No masses. RECTAL: Deferred. MUSCULOSKELETAL: Atraumatic. Chest examination reveals no tenderness. The back is symmetrical on inspection without obvious abnormality. There is no CVA tenderness to palpation. No joint edema. LOWER EXTREMITIES: Calves nontender however the right side is slightly larger than the left. 1+ edema. No discoloration. NEURO: Normal sensorium. No sensory or motor deficits noted. SKIN: No rash or jaundice noted. ED COURSE: LACERATION REPAIR: Location: Occiput Total length: 8 cm Complexity: Simple Verbal consent was obtained after the risks and benefits were explained, including but not limited to bleeding, scarring, infection, pain, and bon e/joint/nerve damage. At this time, the risks of the procedure are less than the risks of NOT performing the procedure. A time out was taken and the correct patient and site identified. The wound was anesthetized with let gel. Copious irrigation was performed using saline. The skin was prepped with betadine and a sterile field set. The wound was explored for foreign bodies and none found. Debridement was not performed. The wound edges were approximated using surgical annemarie. Hemostasis and excellent approximation was achieved. Antibacterial ointment and a sterile dressing applied. Detailed wound care instructions and signs and symptoms of infection reviewed with the patient/family. No complications and the patient tolerated the procedure well. [Critical Care:] [None] Heber Alas MD Past Med/Surg History Medical History (Updated 07/05/20 @ 14:47 by Heber Alas MD) Erectile dysfunction Gouty arthritis Hyperlipidemia Hypertension Plantar fasciitis Polyarthralgia Surgical History Hx of colonoscopy S/P vasectomy Family History Mother Myocardial infarction Diabetes Father Prostate cancer Diabetes Denies family history of Colon cancer Ovarian cancer Breast cancer Colorectal cancer Social History Smoking Status: Former smoker Age Quit Using Tobacco: 54; packs per day: 1; Second Hand Exposure: No; Hx Alcohol Use: Yes Alcohol type: beer Hx Substance Use: No Preferred Language: Faroese Communication Ability: Effective Visual Impairment: No Limitations Hearing Ability: Normal Shear Grinder Operator Required: No Beliefs That Will Affect Care: None marital status: Current Living Situation: Spouse current occupational status: employed current occupation: Self-employed mechanical contractor Feels Safe at Home: Yes Childhood Exposure to Second-Hand Smoke: No Dental Care, Regularly: No Physical Activity Frequency: Other Physical Activity Frequency Comment: Limited by physical condition, tries to walk. Allergies Allergies Allergy/AdvReac Type Severity Reaction Status Date / Time No Known Drug Allergies Allergy Verified 04/29/20 06:59 Home Meds Home Medications Medication Instructions Recorded Confirmed allopurinol 300 mg PO QAM 04/23/20 04/29/20 amlodipine 5 mg PO QAM 04/23/20 04/29/20 lisinopril 20 mg PO QAM 04/23/20 04/23/20 simvastatin 20 mg PO QAM 04/23/20 04/23/20 multivitamin 1 cap PO BID 04/29/20 04/29/20 Previous Rx's Medication Instructions Recorded acetaminophen 1,000 mg PO Q8 PRN #90 tab 04/29/20 aspirin 325 mg PO BID #56 tab 04/29/20 celecoxib [Celebrex] 200 mg PO BID PRN #28 cap 04/29/20 oxycodone 5 mg PO Q6H PRN #30 tab MDD 4 04/29/20 sennosides [Senokot] 17.2 mg PO HS PRN #28 tab 04/29/20 Results & Data (ED) Vital Signs Vital Signs - 24 hr 07/05/20 12:00 07/05/20 13:55 07/05/20 14:00 Temperature 36.7 C Temperature Source Oral Pulse Rate 80 Pulse Rate [Right Finger] 71 Pulse Rhythm Regular Pulse Rhythm [Right Finger] Regular Pulse Strength Normal Pulse Strength [Right Finger] Normal Respiratory Rate 20 20 Respiratory Effort / Characteristics Non-Labored Spontaneous Non-Labored Spontaneous Respiratory Depth Normal Normal Respiratory Pattern Regular Regular Blood Pressure 136/75 Blood Pressure [Right Arm] 136/81 Blood Pressure Mean 95 Blood Pressure Mean [Right Arm] 99 Blood Pressure Position Sitting Blood Pressure Position [Right Arm] Sitting Pulse Oximetry 97 98 98 Oxygen Delivery Method Room Air Room Air Room Air Sepsis Recent Fever Within 48 Hours No Sepsis New/Unexplained Change in Mental Status No Sepsis Action Taken by Nursing No Action Required Laboratory Data Result diagrams: 07/05/20 13:00 07/05/20 13:00 Lab Results 07/05/20 07/05/20 07/05/20 Range/Units 13:00 13:00 13:00 WBC 7.08 (4.8-10.8) K/uL RBC 4.06 L (4.7-6.1) M/uL Hgb 13.8 L (14.0-18.0) g/dL Hct 40.1 L (42-52) % MCV 98.8 (80-100) fL MCH 34.0 (25-34) pg MCHC 34.4 (32-36) g/dL RDW Std Deviation 45.3 (36.4-46.3) fL RDW Coeff of Willie 12.5 (11.5-14.5) % Plt Count 158 (130-400) K/uL MPV 9.9 (7.4-10.4) fL Immature Gran % (Auto) 0.3 % Neut % (Auto) 72.7 % Lymph % (Auto) 16.4 % [place] % (Auto) 7.5 % Eos % (Auto) 2.5 % Baso % (Auto) 0.6 % Neut # (Auto) 5.15 (1.4-6.5) K/uL Lymph # (Auto) 1.16 L (1.2-3.4) K/uL [place] # (Auto) 0.53 (0.11-0.59) K/uL Eos # (Auto) 0.18 (0-0.5) K/uL Baso # (Auto) 0.04 (0-0.2) K/uL Immature Gran # (Auto) 0.02 (0.00-0.02) K/uL D-Dimer 1070 H* (0-500) ug/L FEU Sodium 134 L (136-145) mmol/L Potassium 3.6 (3.5-5.1) mmol/L Chloride 103 (98-107) mmol/L Carbon Dioxide 21 (21-32) mmol/L Anion Gap 10.0 (3-11) BUN 9 (7-18) mg/dl Creatinine 0.77 (0.6-1.4) mg/dl Est Cr Clr Drug Dosing 131.2 ml/min Est GFR ( Amer) 110.4 Est GFR (Non-Af Amer) 95.2 BUN/Creatinine Ratio 12.2 (10-20) Glucose 98 (70-99) mg/dl Calcium 8.1 L (8.5-10.1) mg/dl Magnesium 1.8 (1.8-2.4) mg/dl Total Bilirubin 1.0 (0.2-1) mg/dl AST 33 (15-37) U/L ALT 27 (12-78) U/L Alkaline Phosphatase 85 (45-117) U/L Troponin I < 0.015 (0-0.045) ng/ml Total Protein 7.0 (6.4-8.2) gm/dl Albumin 3.3 L (3.4-5.0) gm/dl Globulin 3.7 (2.5-4.0) gm/dl Albumin/Globulin Ratio 0.9 (0.9-2) TSH 3.510 (0.300-4.500) uIu/ml Administered Medications Discontinued Medications Ioversol (Ioversol 100ml) 119 ml IV ONCE ONE Stop: 07/05/20 14:29 Last Admin: 07/05/20 14:28 Dose: 119 ml Documented by: [id number] Lidocaine (Lidocaine/Epineph/Tetracaine 1 Ea Syr) 1 ea EXT NOW STA Stop: 07/05/20 12:13 Last Admin: 07/05/20 12:12 Dose: 1 ea Documented by: [id number] Discharge Plan Visit Data Chief Complaint: Head Injury, Minor Stated Complaint: fall ED Provider: Heber Alas Discharge Problem: Syncope and collapse, CHI (closed head injury), Laceration of occipital scalp, D-dimer, elevated Forms Stand Alone Forms: [facility] Prescriptions Prescriptions: No Action lisinopril 20 mg tablet 20 mg PO QAM RF: 0 amlodipine 5 mg tablet 5 mg PO QAM RF: 0 simvastatin 20 mg tablet 20 mg PO QAM RF: 0 allopurinol 300 mg tablet 300 mg PO QAM RF: 0 multivitamin Capsule 1 cap PO BID RF: 0 celecoxib [Celebrex] 200 mg Capsule 200 mg PO BID PRN (Reason: pain/inflammation) Qty: 28 RF: 0 acetaminophen 500 mg Tablet 1,000 mg PO Q8 PRN (Reason: pain) Qty: 90 RF: 0 aspirin 325 mg Tablet,Delayed Release (Dr/Ec) 325 mg PO BID Qty: 56 RF: 0 oxycodone 5 mg Tablet 5 mg PO Q6H MDD 4 PRN (Reason: pain) Qty: 30 RF: 0 sennosides [Senokot] 8.6 mg Tablet 17.2 mg PO HS PRN (Reason: constipation) Qty: 28 RF: 0
--- NOTE | 2020-07-05 15:25 | Ultrasound Report ---
ULTRASOUND BILATERAL LOWER EXTREMITY VENOUS CLINICAL HISTORY: Elevated d-dimer. Syncope. COMPARISON STUDY: No priors. TECHNIQUE: Real-time, grayscale, and color Doppler sonography of the deep veins of the right and left lower extremity was performed from the inguinal crease to the calf. Compression and augmentation wer e utilized. FINDINGS: There is no sonographic evidence of deep venous thrombosis identified in the right or left lower extremity. The common femoral, superficial femoral, and popliteal veins are patent and normally compressible bilaterally. The greater saphenous vein and the profunda femoris vein at the junction w ith the common femoral vein are clear in both legs. The visualized calf veins are patent bilaterally. A minimally complex popliteal cyst on the right measures 6.5 x 2.6 x 4.6 cm. IMPRESSION: 1. There is no sonographic evidence of deep venous thrombosis identified in the right or left lower e xtremity. 2. Right popliteal cyst. ACT 112: Negative or not required by law. Electronically signed by: Ralph Wilde M.D. 07/05/2020 3:23 PM
--- NOTE | 2020-07-05 15:59 | History & Physical Report ---
Date of Service July 05, 2020 Assessment & Plan (1) Syncope and collapse: Patient had been drinking prior to the event. He did not say how much beer he had consumed. Some time later he was in a hot car with the windows down. When he arrived to his home he passed out within 30 seconds of getting out of his car. He had prodromal dizziness/lightheadedness but no chest pain/dyspnea/palpitations. No seizure activity as a neighbor witnessed the event. He is orthostatic in the ER today - drops about 25 points with standing (this drop was present even after having gotten IV fluids). He had a similar event several years ago leading to a cardiology evaluation at [facility]. Stress test was negative then. BP meds were adjusted in response to that syncopal event. He has brief periods of dizziness with standing on fairly regular basis. Plan - * hydrate overnight with NS * qshift orthostatic BPs * echo to r/o structural heart disease that could have contributed to the event * carotid duplex study * telemetry to r/o dysrhythmia as cause of event * serial troponins * patient counseled to moderate his etoh consumption (2) CHI (closed head injury): significant head injury 2nd to syncopal episode. scalp laceration present. fortunately no ICH or other intracranial injury. at risk of post-concussion syndrome. (3) Laceration of occipital scalp: s/p staple repair. remove annemarie in 7 days either at PCP's office or in ER. since the laceration occurred in his driveway will give TDaP (adacel) booster today. (4) Hypertension: cont usual meds with hold parameters if orthostasis persists. (5) Hyperlipidemia: cont statin (6) Gouty arthritis: cont allopurinol prophylaxis. right knee could have chronic low-grade gout. (7) Dysphagia: esophageal dysmotility? will ask speech to see him for swallow eval. (8) Alcohol dependence: daily beer consumption. thiamine 200mg IV BID. folate 1mg IV daily. watch for signs/symptoms of etoh withdrawal. patient states, however, he had NO withdrawal during his April admission for left hip replacement. (9) Anemia: Hb was about 10 in 05/11 following his THR. now up to 13.8. check b12 level in am. empiric folate given his etoh use. (10) DVT prophylaxis: in light of significant bleeding from laceration of scalp today will defer on chemical means for now if patient stays beyond tomorrow then add heparin SC PT evaluation to ensure safe for d/c home this weekend updated at bedside History of Present Illness Chief Complaint: syncope, head laceration Primary Care Provider: Garry Perez DO 65yo male with HTN, hyperlipidemia, gout, and chronic joint pains of right knee and b/l ankles presents after having had a syncopal episode in his driveway. Patient states he had driven to the grocery store for a grocery pick-up. He then drove back to his house. He had been in the car for about 15 minutes with the windows down and it was warm. He got out of his car at his home, felt dizzy for a few seconds, then immediately passed out. He lost consciousness for about 2 minutes according to a neighbor that witnessed the event. He hit the back of his head when he passed out, suffering a scalp laceration that required annemarie in the ER. Patient admits to daily etoh consumption. Drinks 3-4 beers on most days. He not only drinks at night-time but also during the daytime. He admits to drinking alcohol prior to the event today. He had a syncopal spell about 5 years ago. He was told at that time that it was due to too much BP medication. He saw [facility] and underwent stress testing that was negative. He does have brief episodes of feeling dizzy/lightheaded with standing too quickly on occasion. Prior to today's event he had no prodromal palpitations, chest pain or dyspnea. He did not have nausea or emesis. Allergies Allergy/AdvReac Type Severity Reaction Status Date / Time No Known Drug Allergies Allergy Verified 04/29/20 06:59 Home Medications Home Medications Medication Instructions Recorded Confirmed Type allopurinol 300 mg PO QAM 04/23/20 07/05/20 History amlodipine 5 mg PO QAM 04/23/20 07/05/20 History lisinopril 20 mg PO QAM 04/23/20 07/05/20 History simvastatin 20 mg PO QAM 04/23/20 07/05/20 History acetaminophen 1,000 mg PO Q8 PRN #90 tab 04/29/20 07/05/20 Rx celecoxib [Celebrex] 200 mg PO BID PRN #28 cap 04/29/20 07/05/20 Rx sennosides [Senokot] 17.2 mg PO HS PRN #28 tab 04/29/20 07/05/20 Rx Past Med/Surg History Medical History (Updated 07/05/20 @ 23:03 by Cameron Basilio) Erectile dysfunction Gouty arthritis Hyperlipidemia Hypertension Plantar fasciitis Polyarthralgia Syncope and collapse Surgical History (Updated 07/05/20 @ 17:01 by Cameron Basilio) Hx of colonoscopy S/P vasectomy Status post left hip replacement Family History (Updated 07/05/20 @ 17:03 by Cameron Basilio) Mother , age 84 Myocardial infarction Diabetes CHF (congestive heart failure) Deep vein thrombosis Father , age 84 Prostate cancer Diabetes Hypertension Dyslipidemia PAD (peripheral artery disease) Amputation below knee Denies family history of Colon cancer Ovarian cancer Breast cancer Colorectal cancer Social History (Updated 07/05/20 @ 17:04 by Cameron Basilio) Smoking Status: Never smoker Age Quit Using Tobacco: 52; packs per day: 1; Years Smoked: 25; Second Hand Exposure: No; Do You Dip or Chew Tobacco: No; Tobacco Cessation Education Requested by Patient: No Hx Alcohol Use: Yes Alcohol type: beer Alcohol Intake Frequency: 4 or More x per/Week Alcohol Intake Frequency Comment: nightly - 3-4 beers minimum Hx Substance Use: No Preferred Language: Colombian Communication Ability: Effective Visual Impairment: No Limitations Hearing Ability: Normal [employer] Required: No Beliefs That Will Affect Care: None marital status: Current Living Situation: Spouse current occupational status: employed current occupation: Self-employed mechanical contractor How many Children do You have: 1 How many Children do You have Comment: from his first marriage; had a step-son but he is now Other Information That Helps Us Care for You: No Feels Safe at Home: Yes Safety Concerns: Feels Safe At This Time Childhood Exposure to Second-Hand Smoke: No Dental Care, Regularly: No Physical Activity Frequency: Other Physical Activity Frequency Comment: Limited by physical condition, tries to walk. Review of Systems Constitutional: no fever, no chills, no fatigue, no anorexia and no weight loss Eyes: no worsening vision Ear, Nose, Mouth, Throat: + dysphagia (worsening issue of late); no sore throat no loss of taste or smell Respiratory: + dyspnea on exertion (going up 1 flight of stairs -- chronic ); no cough and no dyspnea Cardiovascular: + edema (RLE>LLE - chronic); no chest pain, no orthopnea, no paroxysmal nocturnal dyspnea and no palpitations Gastrointestinal: no abdominal pain, no nausea, no vomiting and no diarrhea/loose stools Genitourinary: no dysuria Musculoskeletal: + back pain and + joint pain (right knee, ankles b/l ); no neck pain Integumentary: laceration to scalp from syncopal episode Neurologic: no generalized weakness, no paralysis, no loss of sensation and no headache(s) Psychiatric: no depression Endocrine: denies diabetes Hematologic / Lymphatic: no easy bleeding and no easy bruising Physical Exam Constitutional: + obese; no acute distress and no altered mental status Eyes: + anicteric sclerae, PERRL and EOM intact bilaterally ENMT: external ear and nose normal, oropharynx normal Ears: no TM abnormality Neck: trachea midline, no thyromegaly normal visual inspection; neck nontender and neck extension not limited Respiratory: normal respiratory effort, lungs clear to auscultation Cardiovascular: Rate/Rhythm: regular rate and regular rhythm Heart Sounds: normal S1 and normal S2; no murmur Vessels: posterior tibial pulses present and dorsalis pedis pulses present; no JVD Extremities: + edema (1+ on right, trace left ) Gastrointestinal (Abdomen): normal bowel sounds, soft, nontender, no hepatosplenomegaly Musculoskeletal: Extremities: no clubbing right knee - moderate/large joint effusion with bony changes from OA; bursal swelling as well? head - dressings in place b/l ankles - wearing braces Skin: abrasion left elbow; scalp laceration well-approximated with annemarie intact (posterior occiput) Neurologic: CN's II-XI intact bilaterally, deep tendon reflexes 2+ bilaterally and moves all extremities; no focal motor deficits Speech / Cognition: normal speech Cranial Nerves: PERRL Psychiatric: A+Ox3, euthymic affect Lymphatic: no cervical lymphadenopathy Results & Data Results & Data ([facility]) Vital Signs (Past 12 Hours) Vital Signs Temp Pulse Pulse Resp BP BP Pulse Ox 07/05/20 15:33 68 20 135/86 98 07/05/20 14:00 98 07/05/20 13:55 71 20 136/81 98 07/05/20 12:00 36.7 C 80 20 136/75 97 Laboratory Results Laboratory Results - last 24 hr 07/05/20 07/05/20 07/05/20 13:00 13:00 13:00 WBC 7.08 RBC 4.06 L Hgb 13.8 L Hct 40.1 L MCV 98.8 MCH 34.0 MCHC 34.4 RDW Std Deviation 45.3 RDW Coeff of Willie 12.5 Plt Count 158 MPV 9.9 Immature Gran % (Auto) 0.3 Neut % (Auto) 72.7 Lymph % (Auto) 16.4 Gordon % (Auto) 7.5 Eos % (Auto) 2.5 Baso % (Auto) 0.6 Neut # (Auto) 5.15 Lymph # (Auto) 1.16 L Gordon # (Auto) 0.53 Eos # (Auto) 0.18 Baso # (Auto) 0.04 Immature Gran # (Auto) 0.02 D-Dimer 1070 H* Sodium 134 L Potassium 3.6 Chloride 103 Carbon Dioxide 21 Anion Gap 10.0 BUN 9 Creatinine 0.77 Est Cr Clr Drug Dosing 131.2 Est GFR ( Amer) 110.4 Est GFR (Non-Af Amer) 95.2 BUN/Creatinine Ratio 12.2 Glucose 98 Calcium 8.1 L Magnesium 1.8 Total Bilirubin 1.0 AST 33 ALT 27 Alkaline Phosphatase 85 Troponin I < 0.015 Total Protein 7.0 Albumin 3.3 L Globulin 3.7 Albumin/Globulin Ratio 0.9 TSH 3.510 07/05/20 19:29 WBC RBC Hgb Hct MCV MCH MCHC RDW Std Deviation RDW Coeff of Willie Plt Count MPV Immature Gran % (Auto) Neut % (Auto) Lymph % (Auto) Gordon % (Auto) Eos % (Auto) Baso % (Auto) Neut # (Auto) Lymph # (Auto) Gordon # (Auto) Eos # (Auto) Baso # (Auto) Immature Gran # (Auto) D-Dimer Sodium Potassium Chloride Carbon Dioxide Anion Gap BUN Creatinine Est Cr Clr Drug Dosing Est GFR ( Amer) Est GFR (Non-Af Amer) BUN/Creatinine Ratio Glucose Calcium Magnesium Total Bilirubin AST ALT Alkaline Phosphatase Troponin I < 0.015 Total Protein Albumin Globulin Albumin/Globulin Ratio TSH Diagnostic Findings 1. CT head - Impression: No acute intracranial abnormality. Left posterior scalp swelling with a small laceration. 2. CTA chest - negative for PE. No pneumonia. Fatty liver. 3. b/l LE venous dopplers - negative for DVT. Right popliteal cyst. Code Status & VTE Plan Code Status full VTE Prophylaxis Plan VTE Prophylaxis will be ordered: No PG Care Time/CCT Total # of Minutes Spent Total Time Spent with Patient: Total time spent is greater than 50% in coordination of care (as documented) at patient's floor/unit and/or counseling patient: Coding Level of Care Code 92612 OBS Care - Level 3 Diagnoses Syncope and collapse R55 CHI (closed head injury) S09.90XA Encounter type: initial encounter Laceration of occipital scalp S01.01XA Encounter type: initial encounter Hypertension I10 Hypertension type: essential hypertension Hyperlipidemia E78.2 Hyperlipidemia type: mixed hyperlipidemia Gouty arthritis M10.9 Dysphagia R13.10 Dysphagia type: unspecified Alcohol dependence F10.20 Substance use status: uncomplicated Anemia D64.9 Anemia type: unspecified type DVT prophylaxis Z29.9 (1) CHI (closed head injury) Encounter type: initial encounter Qualified Code(s): S09.90XA - Unspecified injury of head, initial encounter (2) Hyperlipidemia Hyperlipidemia type: mixed hyperlipidemia Qualified Code(s): E78.2 - Mixed hyperlipidemia (3) Laceration of occipital scalp Encounter type: initial encounter Qualified Code(s): S01.01XA - Laceration without foreign body of scalp, initial encounter (4) Hypertension Hypertension type: essential hypertension Qualified Code(s): I10 - Essential (primary) hypertension (5) Dysphagia Dysphagia type: unspecified Qualified Code(s): R13.10 - Dysphagia, unspecified (6) Alcohol dependence Substance use status: uncomplicated Qualified Code(s): F10.20 - Alcohol dependence, uncomplicated (7) Anemia Anemia type: unspecified type Qualified Code(s): D64.9 - Anemia, unspecified
[2020-07-05] MEDS ORDERED: SODIUM CHLORIDE 0.9% 500 ML IV ONE (16:48)
[2020-07-05] MEDS ORDERED: THIAMINE HCL 100 MG in SYRINGE 9 ML IV ONE (17:00)
[2020-07-05] MEDS ORDERED: FOLIC ACID 1 MG in SYRINGE 9.8 ML IV ONE (17:00)
[2020-07-05] MEDS ORDERED: CeleBREX 200 MG CAP PO PRN (19:17)
[2020-07-05] MEDS ORDERED: ACETAMINOPHEN 500 MG TAB PO PRN (19:17)
[2020-07-05] MEDS ORDERED: SENNA 8.6 MG TAB PO PRN (19:17)
[2020-07-05] MEDS ORDERED: DIPHTHERIA/TETANUS/PERTUSSIS 0.5 ML SYR/VIAL IM ONE (19:17)
[2020-07-05] MEDS ORDERED: ONDANSETRON INJ 2 MG/ML 2 ML VIAL IV PRN (19:17)
[2020-07-05] MEDS: SODIUM CHLORIDE 0.9% 1000ML 1,000 ML IV SCH (20:59)
--- NOTE | 2020-07-05 21:03 | Ultrasound Report ---
US carotid doppler BI CLINICAL HISTORY: 65 years-old Male with syncope. Acute syncope COMPARISON: None TECHNIQUE: Multiple real time sonographic images of the carotid bifurcations were obtained assessing beckett scale, color Doppler and spectral wave form appearance FINDINGS: RIGHT CAROTID: The peak systolic velocity within the right ICA is measured at72 cm/sec. The end will stolic velocity measured 18 cm/sec. The ICA to CCA ratio measured 1.1 which correlates with a stenos is of 0-50%. LEFT CAROTID: The peak systolic velocity within the left ICA is measured at76 cm/sec. The end diast olic velocity measured 23 cm/sec. The ICA to CCA ratio measured 1.0 which correlates with a stenosis of 0-50%. There is normal antegrade vertebral flow bilaterally. IMPRESSION: 1. No hemodynamically significant stenosis. 2. Normal antegrade vertebral flow bilaterally. ACT 112: Negative or not required by law. The above report was generated using voice recognition software. It may contain grammatical, syntax o r spelling errors. Electronically signed by: Ernesto Guadalupe M.D. 07/05/2020 9:02 PM
[2020-07-06 01:43] LABS: Appearance Urine Clear (Clear); Bilirubin Urine Negative (Negative); Blood Urine Negative (Negative); Color Urine Yellow; Glucose Urine UA Negative (Negative); Ketones Urine Negative (Negative); Leukocyte Esterase Urine Negative (Negative); Nitrite Urine Negative (Negative); Protein Urine Negative (Negative); Specific Gravity Urine <= 1.005 (1.000-1.030); Urobilinogen Urine Negative (Negative)
[2020-07-06 02:20] LABS: BUN Creatinine Ratio 10.4 (10-20); Blood Urea Nitrogen 8 mg/dl (7-18); Calcium 7.9 mg/dl (8.5-10.1); Carbon Dioxide 21 mmol/L (21-32); Chloride 106 mmol/L (98-107); Creatinine Clr Calc Pharmacy 126.3 ml/min; Est GFR (African American) 108.7; Est GFR (Non-African American) 93.7; Glucose 94 mg/dl (70-99); Potassium 3.9 mmol/L (3.5-5.1); Sodium 135 mmol/L (136-145)
[2020-07-06 02:25] LABS: Troponin I < 0.015 ng/ml (0-0.045)
--- NOTE | 2020-07-06 07:09 | Electrocardiogram Report ---
Test Reason : Blood Pressure : / mmHG Vent. Rate : 076 BPM Atrial Rate : 076 BPM P-R Int : 204 ms QRS Dur : 096 ms QT Int : 406 ms P-R-T Axes : 097 043 053 degrees QTc Int : 456 ms Normal sinus rhythm Increased R/S ratio in V1, consider early transition or posterior infarct Abnormal ECG No previous ECGs available Confirmed by Ortiz James ([id number]) on 07/06/2020 7:09:21 AM Referred By: REFERRED SELF Confirmed By:Ortiz James
[2020-07-06] MEDS: SODIUM CHLORIDE 0.9% 1000ML 1,000 ML IV SCH ×2 (07:41→15:55)
[2020-07-06] MEDS ORDERED: allopurinoL 300 MG TAB PO SCH (09:00)
[2020-07-06] MEDS ORDERED: SIMVASTATIN 20 MG TAB PO SCH (09:00)
[2020-07-06] MEDS ORDERED: lisinopriL 20 MG TAB PO SCH (09:00)
[2020-07-06] MEDS ORDERED: AMLODIPINE BESYLATE 5 MG TAB PO SCH (09:00)
--- NOTE | 2020-07-06 15:50 | Discharge Summary ---
Date of Service July 06, 2020 Admission HPI Per Admitting Provider 65yo male with HTN, hyperlipidemia, gout, and chronic joint pains of right knee and b/l ankles presents after having had a syncopal episode in his driveway. Patient states he had driven to the grocery store for a grocery pick-up. He then drove back to his house. He had been in the car for about 15 minutes with the windows down and it was warm. He got out of his car at his home, felt dizzy for a few seconds, then im mediately passed out. He lost consciousness for about 2 minutes according to a neighbor that witnessed the event. He hit the back of his head when he passed out, suffering a scalp laceration that required annemarie in the ER. Patient admits to daily etoh consumption. Drinks 3-4 beers on most days. He not only drinks at night-time but also during the daytime. He admits to drinking alcohol prior to the event today. He had a syncopal spell about 5 years ago. He was told at that time that it was due to too much BP medication. He saw [facility] and underwent stress testing that was negative. He does have brief episodes of feeling dizzy/lightheaded with standing too quickly on occasion. Prior to today's event he had no prodromal palpitations, chest pain or dyspnea. He did not have nausea or emesis. Principal Diagnosis Syncope Discharge Exam Constitutional WD/WN, vitals as above + obese Eyes + anicteric sclerae and EOM intact bilaterally ENMT external ear and nose normal, oropharynx normal Neck trachea midline, no thyromegaly Respiratory normal respiratory effort, lungs clear to auscultation Cardiovascular Rate/Rhythm: regular rate and regular rhythm Heart Sounds: no murmur Extremities: + edema (1+ pitting edema of the lower extremities to the knees bilaterally) Chest (Breasts) Chest: normal inspection of chest Gastrointestinal (Abdomen) normal bowel sounds, soft, nontender, no hepatosplenomegaly Musculoskeletal Extremities: extremities normal to inspection; no cyanosis and no clubbing Skin no rashes, warm and dry Neurologic moves all extremities and awake; no focal motor deficits Psychiatric A+Ox3, euthymic affect Lymphatic no lymphedema Discharge Data Allergies Allergy/AdvReac Type Severity Reaction Status Date / Time No Known Drug Allergies Allergy Verified 07/15/20 09:01 Ordered Studies 07/05/20 12:12 CT head/brain wo con Stat 07/05/20 14:09 CT angio chest PE protocol Stat US venous doppler LE BI Stat 07/05/20 19:17 US carotid doppler BI Routine Echocardiogram-EF 60-65%, no regional wall motion abnormalities, mild LVH, no significant diastolic dysfunction, no significant valvular abnormalities Hospital Course (1) Syncope and collapse: Likely related to orthostasis. With chronic venous stasis and lower extremity edema related to obesity and possibly venous reflux He had been sitting for a while in his pickup truck and went to a standing position quickly to talk to his neighbor-he felt prodromal lightheadedness and then fell to the ground and passed out. He never had any chest pain/dyspnea/palpitations. No seizure activity as a neighbor witnessed the event. He was orthostatic in the ER on admission- drops about 25 points with standing (this drop was present even after having gotten IV fluids). He had a similar event several years ago leading to a cardiology evaluation at [facility]. Stress test was negative then. BP meds were adjusted in response to that syncopal event. He has brief periods of dizziness with standing on fairly regular basis. He was hydrated overnight and orthostatic blood pressures improved. He felt much improved. Echocardiogram without structural abnormalities and with preserved EF. Carotid Doppler was performed which was negative He had no significant arrhythmias on telemetry-he had normal sinus rhythm throughout the hospital stay. Troponins were negative x3. A CT angiogram of the chest was negative. -Recommended JULISA kruger Recommended discussing with his PCP about decreasing the dose of his amlodipine which can help with lower extremity edema and vasodilation -Recommended against the amount of alcohol that he is drinking daily-recommended dropping this down to no more than 1 or 2 beers per day -Stable for discharge home (2) CHI (closed head injury): significant head injury 2nd to syncopal episode. scalp laceration present and was closed with annemarie in the ER. fortunately no ICH or other intracranial injury. CT of the head was negative No symptoms of concussion on the day after admission Follow-up with PCP for staple removal (3) Laceration of occipital scalp: s/p staple repair. remove annemarie in 7 days either at PCP's office or in ER. since the laceration occurred in his driveway he was given TDaP (adacel) booster here (4) Hypertension: cont usual meds with hold parameters if orthostasis persists, consider replacing amlodipine with something else (5) Hyperlipidemia: cont statin (6) Gouty arthritis: cont allopurinol prophylaxis. right knee could have chronic low-grade gout. (7) Dysphagia: esophageal dysmotility? Follow-up with PCP . (8) Alcohol dependence: daily beer consumption. thiamine 200mg IV BID was given. folate 1mg IV daily was given Counseled on cutting down on alcohol consumption Has never had alcohol withdrawal (9) Anemia: Hb was about 10 in 05/11 following his THR. now up to 13.8. B12 level was quite low at 192 -Advise follow-up with PCP and should start B12 oral supplement-discussed with patient (10) DVT prophylaxis: None given laceration of the scalp Disposition-stable for discharge to home Total Time Total Time Spent Total Time Spent (In Minutes): 60 minutes Total Time Includes: Examination of the Patient, Discharge Planning and Medication Reconciliation Discharge Plan Discharge Items Patient Disposition: Home - Self-Care Reason For Visit: SYNCOPE Discharge Diagnosis: Orthostatic syncope Condition on Discharge: Good Activity: As commented below Lifting: Gradually increase as tolerated Bathing: No limitations Exercise/Sports: Gradually increase as tolerated Driving/Machine Use: No limitations Weightbearing: Full weightbearing Non-emergency contact: Primary Care Provider Call non-emergency contact if: you have any medication questions and your symptoms worsen Follow-up/Referrals: Garry Perez, [Primary Care Provider] - (Follow up within 1-2 weeks.) Diet: Heart Healthy Addtl Attending Provider Instructions: You were admitted after passing out from what is most likely orthostasis. To prevent this in the future, you should wear compression stockings during the daytime, and always make sure you take a moment to ensure you are not lightheaded after you stand up from a seated or lying position. It may be helpful to reduce the swelling in your legs not only with compression stockings but talk to your doctor about switching your amlodipine to a different blood pressure medication such as metoprolol. You had no arrhythmias of the heart while here that would explain passing out. You should cut down your alcohol intake to no more than 1-2 drinks per day. You should never drive a vehicle after drinking as well. If you start to feel lightheaded while driving, you should press puller immediately and lie flat. Follow up with Dr. Perez within 1-2 weeks. He can remove the annemarie in the back of your head at that time. Pending Studies at Discharge: No Stand-Alone Forms: My [facility] Medications and DC Order Prescriptions: Continued lisinopril 20 mg tablet 20 mg PO QAM RF: 0 amlodipine 5 mg tablet 5 mg PO QAM RF: 0 simvastatin 20 mg tablet 20 mg PO QAM RF: 0 allopurinol 300 mg tablet 300 mg PO QAM RF: 0 acetaminophen 500 mg Tablet 1,000 mg PO Q8 PRN (Reason: pain) Qty: 90 RF: 0 sennosides [Senokot] 8.6 mg Tablet 17.2 mg PO HS PRN (Reason: constipation) Qty: 28 RF: 0 No Action Shingrix (PF) 50 mcg/0.5 mL suspension for reconstitution 0.5 ml IM .COMPLEX Qty: 1 RF: 1 Discharge Orders: Discharge Order (Routine); Ordered 07/06/20 Ordered By: Renata Pradhan Admission Data Admit Date/Time: 07/05/20 16:49 Attending Provider: Renata Pradhan Admit Provider: Cameron Basilio Primary Care Provider: Garry Perez Other Interventions: Discharge Summary Assessment (RN) Last Done: 07/06/20 17:38 Coding Level of Care Code 29179 OBS Care - Discharge Diagnoses Syncope and collapse R55 CHI (closed head injury) S09.90XA Encounter type: initial encounter Laceration of occipital scalp S01.01XA Encounter type: initial encounter Hypertension I10 Hypertension type: essential hypertension Hyperlipidemia E78.2 Hyperlipidemia type: mixed hyperlipidemia Gouty arthritis M10.9 Dysphagia R13.10 Dysphagia type: unspecified Alcohol dependence F10.20 Substance use status: uncomplicated Anemia D64.9 Anemia type: unspecified type DVT prophylaxis Z29.9
--- NOTE | 2020-07-06 17:58 | XCELERA ---
[id number]
--- NOTE | 2020-07-07 22:28 | Electrocardiogram Report ---
Test Reason : Blood Pressure : / mmHG Vent. Rate : 074 BPM Atrial Rate : 074 BPM P-R Int : 206 ms QRS Dur : 096 ms QT Int : 406 ms P-R-T Axes : 053 037 071 degrees QTc Int : 450 ms Normal sinus rhythm Normal ECG When compared with ECG of 05-JUL-2020 12:06, No significant change was found Confirmed by Ortiz James ([id number]) on 07/07/2020 10:28:08 PM Referred By: REFERRED SELF Confirmed By:Ortiz James
== END 2020-07-06 18:22 | disposition home or self-care (01) ==
LOC: 2N 11:58 → ED 11:58 → SUATTDRO 16:49 → 2N 18:11
DX: Z96.642 Presence of left artificial hip joint; Z79.899 Other long term (current) drug therapy; S09.90XA Unspecified injury of head, initial encounter; S01.01XA Laceration without foreign body of scalp, initial encounter; I10 Essential (primary) hypertension; W19.XXXA Unspecified fall, initial encounter; Z87.891 Personal history of nicotine dependence; R55 Syncope and collapse; D64.9 Anemia, unspecified; F10.20 Alcohol dependence, uncomplicated; E78.5 Hyperlipidemia, unspecified; M10.9 Gout, unspecified

== ENCOUNTER 2022-05-29 15:30 | Observation (INO) ==
[2022-05-29 16:04] LABS: Basophils # (auto) 0.08 K/uL (0-0.2); Basophils % (auto) 0.8 %; Eosinophils # (auto) 0.11 K/uL (0-0.50); Eosinophils % (auto) 1.1 %; Hemoglobin 12.1 g/dl (14.0-18.0); Immature Granulocytes # (auto) 0.05 K/uL (0.00-0.02); Immature Granulocytes % (auto) 0.5 %; Lymphocytes # (auto) 1.24 K/uL (1.2-3.4); Mean Corpuscular Hemoglobin 35.6 pg (25.0-34.0); Mean Corpuscular Hgb Conc 36.7 g/dL (32.0-36.0); Mean Corpuscular Volume 97.1 fL (80.0-100.0); Mean Platelet Volume 9.8 fL (9.4-12.4); Monocytes # (auto) 0.79 K/uL (0.24-0.82); Monocytes % (auto) 8.3 %; Neutrophils % (auto) 76.3 %; Platelet Count 153 K/uL (130-400); RDW Standard Deviation 42.6 fL (36.4-46.3); White Blood Count 9.57 K/ul (4.8-10.8)
[2022-05-29 16:24] LABS: Albumin Globulin Ratio 1.3 (0.9-2); Albumin Level 3.9 gm/dl (3.4-5.0); BUN Creatinine Ratio 22.4 (10-20); Bilirubin,Total 1.6 mg/dl (0.2-1.0); Calcium 8.7 mg/dl (8.5-10.1); Creatinine Clr Calc Pharmacy 91.5 ml/min; Est GFR (African American) 82.8 ml/min; Est GFR (Non-African American) 71.5 ml/min; Globulin 3.1 gm/dl (2.5-4.0); Potassium 4.3 mmol/L (3.5-5.1)
--- NOTE | 2022-05-29 16:53 | Emergency Department Note ---
History of Present Illness General Chief complaint: Abnormal Labs/Diagnostic Testing Stated complaint: REF BY , ABNORMAL LABS Time Seen by Provider: 05/29/22 16:34 Source: patient History of Present Illness Provider complaint: Gait disturbance Onset (ago): week(s) Location: head Pain Consistency: + intermittent Quality: + other (Legs give out any falls to the ground) Relieved By: + none Associated symptoms: no confusion, no chest pain, no cough, no fever/chills, no headaches, no nausea/vomiting, no shortness of breath or no weakness This is a 67-year-old male sent here by his doctor's office for neurologic sympt oms and a sodium of 126. The patient has had gait problems for the past week. He states that he is walking and all of a sudden his leg will give out and he will fall to the ground. He never hit his head but states that he did hurt his left elbow and his knee. He is not sure if he feels weak in the leg. He states it occurs with either leg. He does state that he is normally having some weakness to the right foot because he had reconstructive surgery about a year ago there. He denies any numbness to his legs or arms. He has had minor difficulty finding words and memory issues over the past week. He otherwise denies any slurred speech, change in vision or difficulty swallowing. He states that he has not been drinking more water than usual. He denies any fever, headache, cough or cold symptoms, chest discomfort, shortness of breath, abdominal pain, vomiting, urinary symptoms or black or bloody stools. He did state that he ate too many cherries and that gave him a little bit of diarrhea. Home Medications Medication Instructions Recorded Confirmed Type acetaminophen 500 mg tablet 1,000 mg PO Q8 PRN #90 tab 04/29/20 05/29/22 Rx sennosides 8.6 mg tablet (Senokot) 17.2 mg PO HS PRN #28 tab 04/29/20 05/29/22 Rx multivitamin (Daily Multi-Vitamin) 1 tab PO DAILY 04/17/21 05/29/22 History allopurinol 300 mg tablet 300 mg PO QAM #90 tab 01/02/22 05/29/22 Rx lisinopril 20 mg tablet 20 mg PO QAM #90 tab 01/02/22 05/29/22 Rx simvastatin 20 mg tablet 20 mg PO QAM #90 tab 01/02/22 05/29/22 Rx apixaban 5 mg tablet (Eliquis) 5 mg PO BID #180 tab 01/06/22 05/29/22 Rx sildenafil 100 mg tablet 100 mg PO DAILY PRN #20 tab 01/27/22 05/29/22 Rx sodium sul 1.479 gram-potas ch See Rx Instructions PO .COMPLEX 03/09/22 05/29/22 Rx 0.188 gram-magnes sul 0.225 gram #24 tab tablet (Sutab) amlodipine 5 mg tablet 5 mg PO QAM #90 tab 04/01/22 05/29/22 Rx hydroxyzine HCl 25 mg tablet 25 - 50 mg PO HS PRN 05/29/22 05/29/22 History Allergies Allergy/AdvReac Type Severity Reaction Status Date / Time No Known Drug Allergies Allergy Verified 05/29/22 20:11 cat dander AdvReac Unknown Rash Verified 05/29/22 20:11 Past Med/Surg History Medical History Erectile dysfunction Gouty arthritis Hyperlipidemia Hypertension Plantar fasciitis Polyarthralgia Syncope and collapse Surgical History Hx of colonoscopy S/P foot surgery, right S/P vasectomy Status post left hip replacement Family History Mother , age 84 Myocardial infarction Diabetes CHF (congestive heart failure) Deep vein thrombosis Father , age 84 Prostate cancer Diabetes Hypertension Dyslipidemia PAD (peripheral artery disease) Amputation below knee Denies family history of Colon cancer Ovarian cancer Breast cancer Colorectal cancer Social History Smoking Status: Former smoker Age Quit Using Tobacco: 52; packs per day: 1; Years Smoked: 25; Smoking End Date: 2000; Second Hand Exposure: No; Do You Dip or Chew Tobacco: No; Hx Alcohol Use: Yes Alcohol type: beer and hard liquor Alcohol Intake Frequency: 4 or More x per/Week Alcohol Intake Frequency Comment: nightly - 3-4 beers minimum Hx Substance Use: Yes Prescribed Medications: Marijuana Last Used Substance: Days (ago) Substance Use Type Other:: Medical [place] Preferred Language: Bruneian Communication Ability: Effective Visual Impairment: No Limitations Hearing Ability: Normal Currency Counter Required: No Beliefs That Will Affect Care: None marital status: Current Living Situation: Spouse current occupational status: employed current occupation: Self-employed mechanical contractor How many Children do You have: 1 How many Children do You have Comment: from his first marriage; had a step-son but he is now Other Information That Helps Us Care for You: No Feels Safe at Home: Yes Safety Concerns: Feels Safe At This Time Childhood Exposure to Second-Hand Smoke: No caffeine: Yes during the past year weight has: remained stable Dental Care, Regularly: No Physical Activity Frequency: Daily Physical Activity Frequency Comment: Limited by physical condition, tries to walk. Seatbelt Use: always Sunscreen Use: Yes Assistive Devices: Cane, Denture - Upper, Denture - Lower and Glasses Assistive Devices Comment: No cane with patient Review of Systems See HPI for pertinent positives & negatives. and A total of 10 systems reviewed and were otherwise negative Physical Exam Vital Signs Vital Signs - 24 hr 05/29/22 15:38 05/29/22 16:31 05/29/22 17:53 Temperature 36.8 C Temperature Source Temporal Artery Scan Pulse Rate 72 Pulse Rate [Apical] 64 Respiratory Rate 18 18 18 Respiratory Effort / Characteristics Non-Labored Respiratory Depth Normal Blood Pressure 106/66 Blood Pressure [Left Arm] 119/66 131/75 Blood Pressure Mean 79 Blood Pressure Mean [Left Arm] 83 93 Pulse Oximetry 96 95 97 Oxygen Delivery Method Room Air Room Air Room Air Sepsis Recent Fever Within 48 Hours No Sepsis New/Unexplained Change in Mental Status No Sepsis Action Taken by Nursing No Action Required 05/29/22 18:44 05/29/22 19:44 05/29/22 20:00 Temperature Temperature Source Pulse Rate Pulse Rate [Apical] 57 L 66 71 Respiratory Rate 18 18 18 Respiratory Effort / Characteristics Non-Labored Non-Labored Non-Labored Respiratory Depth Normal Normal Normal Blood Pressure Blood Pressure [Left Arm] 135/77 160/74 H 125/66 Blood Pressure Mean Blood Pressure Mean [Left Arm] 96 102 85 Pulse Oximetry 99 98 98 Oxygen Delivery Method Room Air Room Air Room Air Sepsis Recent Fever Within 48 Hours Sepsis New/Unexplained Change in Mental Status Sepsis Action Taken by Nursing 05/29/22 21:00 Temperature Temperature Source Pulse Rate Pulse Rate [Apical] 67 Respiratory Rate 18 Respiratory Effort / Characteristics Respiratory Depth Blood Pressure Blood Pressure [Left Arm] Blood Pressure Mean Blood Pressure Mean [Left Arm] Pulse Oximetry 98 Oxygen Delivery Method Room Air Sepsis Recent Fever Within 48 Hours Sepsis New/Unexplained Change in Mental Status Sepsis Action Taken by Nursing Constitutional: Vital signs reviewed. Eyes: Pupils are equal round reactive to light. Conjunctiva are noninjected. ENT: Pharynx is clear without erythema or exudate. Mucous membranes are moist. Neck supple without meningeal signs. Respiratory: Clear to auscultation bilaterally. Breath sounds are equal bilaterally. Cardiovascular: Regular rate and rhythm. No rubs or gallops. GI: Soft, nondistended and nontender. Bowel sounds are present. Musculoskeletal: No peripheral edema. No lower extremity tenderness. Integumentary: No cyanosis. or jaundice. Neurologic: The patient is awake and alert. Cranial nerves II-XII are intact. Motor is 5 out of 5 all extremities. Sensation is intact to light touch all extremities. Normal speech. No pronator drift. No limb ataxia. Psychiatric: Normal affect. Not anxious appearing. Medical Decision Making Differential Diagnosis Intracranial mass, intracranial hemorrhage, CVA, TIA, metabolic derangement, electrolyte abnormality Medical Records Attestation: I reviewed the patient's medical records. I did perform a limited focused review of portions of the patient's old chart on the electronic medical record. The patient had blood work earlier today which showed a sodium of 126. Home Medications Current Medication List: was personally reviewed by me Laboratory Data Attestation: I reviewed the patient's lab results. Result diagrams: 05/29/22 15:55 05/29/22 15:55 Lab Results 05/29/22 05/29/22 05/29/22 Range/Units 15:55 15:55 15:55 WBC 9.57 (4.8-10.8) K/ul RBC 3.40 L (4.63-6.08) M/uL Hgb 12.1 L (14.0-18.0) g/dl Hct 33.0 L (40.1-51.0) % MCV 97.1 (80.0-100.0) fL MCH 35.6 H (25.0-34.0) pg MCHC 36.7 H (32.0-36.0) g/dL RDW Std Deviation 42.6 (36.4-46.3) fL RDW Coeff of Willie 12.0 (11.5-14.5) % Plt Count 153 (130-400) K/uL MPV 9.8 (9.4-12.4) fL Immature Gran % (Auto) 0.5 % Neut % (Auto) 76.3 % Lymph % (Auto) 13.0 % Ferry % (Auto) 8.3 % Eos % (Auto) 1.1 % Baso % (Auto) 0.8 % Neut # (Auto) 7.30 H (1.4-6.5) K/uL Lymph # (Auto) 1.24 (1.2-3.4) K/uL Ferry # (Auto) 0.79 (0.24-0.82) K/uL Eos # (Auto) 0.11 (0-0.50) K/uL Baso # (Auto) 0.08 (0-0.2) K/uL Immature Gran # (Auto) 0.05 H (0.00-0.02) K/uL Sodium 126 L (136-145) mmol/L Potassium 4.3 (3.5-5.1) mmol/L Chloride 97 L (98-107) mmol/L Carbon Dioxide 17 L (21-32) mmol/L Anion Gap 12 H (3-11) BUN 24 H (6-23) mg/dl Creatinine 1.07 (0.6-1.4) mg/dl Est Cr Clr Drug Dosing 91.5 ml/min Est GFR ( Amer) 82.8 ml/min Est GFR (Non-Af Amer) 71.5 ml/min BUN/Creatinine Ratio 22.4 H (10-20) Glucose 91 (70-99(Fasting)) mg/dl Osmolality 300 (280-300) mOsm/kg Calcium 8.7 (8.5-10.1) mg/dl Total Bilirubin 1.6 H (0.2-1.0) mg/dl AST 29 (13-39) U/L ALT 22 (7-52) U/L Alkaline Phosphatase 67 (34-104) U/L Total Protein 7.0 (6.0-8.3) gm/dl Albumin 3.9 (3.4-5.0) gm/dl Globulin 3.1 (2.5-4.0) gm/dl Albumin/Globulin Ratio 1.3 (0.9-2) Urine Color Urine Appearance (Clear) Urine pH (4.5-7.5) Ur Specific [place] (1.000-1.030) Urine Protein (Negative) Urine Glucose (UA) (Negative) Urine Ketones (Negative) Urine Blood (Negative) Urine Nitrite (Negative) Urine Bilirubin (Negative) Urine Urobilinogen (Negative) Ur Leukocyte Esterase (Negative) Urine Osmolality (500-800) mOsm/kg Ur Random Sodium mmol/L SARS-CoV-2, RNA, NAAT (NEGATIVE) 05/29/22 05/29/22 05/29/22 Range/Units 15:55 15:55 16:40 WBC (4.8-10.8) K/ul RBC (4.63-6.08) M/uL Hgb (14.0-18.0) g/dl Hct (40.1-51.0) % MCV (80.0-100.0) fL MCH (25.0-34.0) pg MCHC (32.0-36.0) g/dL RDW Std Deviation (36.4-46.3) fL RDW Coeff of Willie (11.5-14.5) % Plt Count (130-400) K/uL MPV (9.4-12.4) fL Immature Gran % (Auto) % Neut % (Auto) % Lymph % (Auto) % Ferry % (Auto) % Eos % (Auto) % Baso % (Auto) % Neut # (Auto) (1.4-6.5) K/uL Lymph # (Auto) (1.2-3.4) K/uL Ferry # (Auto) (0.24-0.82) K/uL Eos # (Auto) (0-0.50) K/uL Baso # (Auto) (0-0.2) K/uL Immature Gran # (Auto) (0.00-0.02) K/uL Sodium (136-145) mmol/L Potassium (3.5-5.1) mmol/L Chloride (98-107) mmol/L Carbon Dioxide (21-32) mmol/L Anion Gap (3-11) BUN (6-23) mg/dl Creatinine (0.6-1.4) mg/dl Est Cr Clr Drug Dosing ml/min Est GFR ( Amer) ml/min Est GFR (Non-Af Amer) ml/min BUN/Creatinine Ratio (10-20) Glucose (70-99(Fasting)) mg/dl Osmolality (280-300) mOsm/kg Calcium (8.5-10.1) mg/dl Total Bilirubin (0.2-1.0) mg/dl AST (13-39) U/L ALT (7-52) U/L Alkaline Phosphatase (34-104) U/L Total Protein (6.0-8.3) gm/dl Albumin (3.4-5.0) gm/dl Globulin (2.5-4.0) gm/dl Albumin/Globulin Ratio (0.9-2) Urine Color Yellow Urine Appearance Clear (Clear) Urine pH 5.0 (4.5-7.5) Ur Specific [place] 1.010 (1.000-1.030) Urine Protein Negative (Negative) Urine Glucose (UA) Negative (Negative) Urine Ketones Negative (Negative) Urine Blood Negative (Negative) Urine Nitrite Negative (Negative) Urine Bilirubin Negative (Negative) Urine Urobilinogen Negative (Negative) Ur Leukocyte Esterase Negative (Negative) Urine Osmolality 293 L (500-800) mOsm/kg Ur Random Sodium 22 mmol/L SARS-CoV-2, RNA, NAAT (NEGATIVE) 05/29/22 Range/Units 17:00 WBC (4.8-10.8) K/ul RBC (4.63-6.08) M/uL Hgb (14.0-18.0) g/dl Hct (40.1-51.0) % MCV (80.0-100.0) fL MCH (25.0-34.0) pg MCHC (32.0-36.0) g/dL RDW Std Deviation (36.4-46.3) fL RDW Coeff of Willie (11.5-14.5) % Plt Count (130-400) K/uL MPV (9.4-12.4) fL Immature Gran % (Auto) % Neut % (Auto) % Lymph % (Auto) % Ferry % (Auto) % Eos % (Auto) % Baso % (Auto) % Neut # (Auto) (1.4-6.5) K/uL Lymph # (Auto) (1.2-3.4) K/uL Ferry # (Auto) (0.24-0.82) K/uL Eos # (Auto) (0-0.50) K/uL Baso # (Auto) (0-0.2) K/uL Immature Gran # (Auto) (0.00-0.02) K/uL Sodium (136-145) mmol/L Potassium (3.5-5.1) mmol/L Chloride (98-107) mmol/L Carbon Dioxide (21-32) mmol/L Anion Gap (3-11) BUN (6-23) mg/dl Creatinine (0.6-1.4) mg/dl Est Cr Clr Drug Dosing ml/min Est GFR ( Amer) ml/min Est GFR (Non-Af Amer) ml/min BUN/Creatinine Ratio (10-20) Glucose (70-99(Fasting)) mg/dl Osmolality (280-300) mOsm/kg Calcium (8.5-10.1) mg/dl Total Bilirubin (0.2-1.0) mg/dl AST (13-39) U/L ALT (7-52) U/L Alkaline Phosphatase (34-104) U/L Total Protein (6.0-8.3) gm/dl Albumin (3.4-5.0) gm/dl Globulin (2.5-4.0) gm/dl Albumin/Globulin Ratio (0.9-2) Urine Color Urine Appearance (Clear) Urine pH (4.5-7.5) Ur Specific [place] (1.000-1.030) Urine Protein (Negative) Urine Glucose (UA) (Negative) Urine Ketones (Negative) Urine Blood (Negative) Urine Nitrite (Negative) Urine Bilirubin (Negative) Urine Urobilinogen (Negative) Ur Leukocyte Esterase (Negative) Urine Osmolality (500-800) mOsm/kg Ur Random Sodium mmol/L SARS-CoV-2, RNA, NAAT NEGATIVE (NEGATIVE) Imaging Data Radiologist's Impression: Head CT 05/29/22 16:46 CT SCAN OF THE BRAIN WITHOUT IV CONTRAST CLINICAL HISTORY: Falls. COMPARISON STUDY: CT of the brain dated 07/05/2020. TECHNIQUE: Unenhanced axial CT scan of the brain is performed from the vertex to the skull base. A dose lowering technique was utilized adhering to the principles of ALARA. CT DOSE: 628.26 mGycm FINDINGS: Brain parenchyma: There is age-related involutional change noting mild subcortical and periventricular microangiopathic disease. There is no hemorrhage, mass effect, or evidence of acute territorial ischemia by CT criteria. Lang-white matter differentiation is preserved. No extra-axial fluid collection is seen. Ventricles, sulci, cisterns: Prominent secondary to involutional change. Intracranial vasculature: There is atherosclerotic calcification of the cavernous carotid and vertebral arteries. Calvarium: The skeletal structures are osteopenic. No depressed calvarial fracture is identified. Sinuses and mastoids: The visualized paranasal sinuses are clear. The mastoid air cells are well pneumatized. Orbits: The bony orbits are grossly intact. IMPRESSION: There is no hemorrhage, mass effect, or evidence of acute terr itorial ischemia by CT criteria. ACT 112: Negative or not required by law. Electronically signed by: Ralph Wilde M.D. 05/29/2022 5:37 PM Chest X-Ray 05/29/22 18:42 XR chest 1V portable HISTORY: dizziness, hyponatremia COMPARISON: Chest CT 07/05/2020. FINDINGS: No focal lung consolidations to suggest pneumonia. No evidence for pulmonary edema. The cardiac silhouette is top normal in size. No pleural fusions. No pneumothorax. IMPRESSION: No acute process. ACT 112: Negative or not required by law. Electronically signed by: Celso Freeman M.D. 05/29/2022 7:06 PM MDM Narrative I did evaluate the patient as noted above. He is presenting with frequent falls over the past week. He states that either of his legs will give out for no apparent reason. He states he does not feel lightheaded or dizzy when this occurs. He does not pass out. He had a sodium of 126 on his blood work today and was sent here by his doctor's office. IV access was established. I did place an order for continuous cardiac monitoring. The monitor showed normal sinus rhythm at a rate of 65 bpm. I did order a urine analysis. There is no blood or infection. I did review the patient's blood work as noted in the electronic medical record. CBC demonstrates hemoglobin 12.1. He has no leukocytosis or thrombocytopenia. His electrolytes demonstrate a sodium of 126, chloride of 97, carbon dioxide of 17 and a BUN/creatinine of 24 and 1.07. Total bili is 1.6. I did order a CT of the head. I did review the images myself as well as the radiology report as described above. There is no evidence of acute intracranial abnormality. I did discuss the case with the hospitalist and case hardener. He will be hospitalized for further care and evaluation. Impression & Plan Acute hyponatremia, Anemia, Frequent falls Discharge Plan Visit Data Chief Complaint: Abnormal Labs/Diagnostic Testing Stated Complaint: REF BY , ABNORMAL LABS ED Provider: Sourav Palomino Discharge Problem: Acute hyponatremia, Anemia, Frequent falls Patient Disposition: Admitted As Inpatient Discharge Instructions Interventions: ED Discharge Assessment Last Done: 05/29/22 21:56 Discharge Problem: Anemia Qualifiers: Anemia type: unspecified type Qualified Code(s): D64.9 - Anemia, unspecified
[2022-05-29 16:54] LABS: Appearance Urine Clear (Clear); Bilirubin Urine Negative (Negative); Blood Urine Negative (Negative); Color Urine Yellow; Glucose Urine UA Negative (Negative); Ketones Urine Negative (Negative); Leukocyte Esterase Urine Negative (Negative); Nitrite Urine Negative (Negative); Protein Urine Negative (Negative); Urobilinogen Urine Negative (Negative)
--- NOTE | 2022-05-29 17:39 | CT Scan Report ---
CT SCAN OF THE BRAIN WITHOUT IV CONTRAST CLINICAL HISTORY: Falls. COMPARISON STUDY: CT of the brain dated 07/05/2020. TECHNIQUE: Unenhanced axial CT scan of the brain is performed from the vertex to the skull base. A do se lowering technique was utilized adhering to the principles of ALARA. CT DOSE: 628.26 mGycm FINDINGS: Brain parenchyma: There is age-related involutional change noting mild subcortical and periventricula r microangiopathic disease. There is no hemorrhage, mass effect, or evidence of acute territorial isc hemia by CT criteria. Lang-white matter differentiation is preserved. No extra-axial fluid collection is seen. Ventricles, sulci, cisterns: Prominent secondary to involutional change. Intracranial vasculature: There is atherosclerotic calcification of the cavernous carotid and vertebr al arteries. Calvarium: The skeletal structures are osteopenic. No depressed calvarial fracture is identified. Sinuses and mastoids: The visualized paranasal sinuses are clear. The mastoid air cells are well pneu matized. Orbits: The bony orbits are grossly intact. IMPRESSION: There is no hemorrhage, mass effect, or evidence of acute territorial ischemia by CT ferny brush. ACT 112: Negative or not required by law. Electronically signed by: Ralph Wilde M.D. 05/29/2022 5:37 PM
--- NOTE | 2022-05-29 19:09 | XRay Report ---
XR chest 1V portable HISTORY: dizziness, hyponatremia COMPARISON: Chest CT 07/05/2020. FINDINGS: No focal lung consolidations to suggest pneumonia. No evidence for pulmonary edema. The car diac silhouette is top normal in size. No pleural fusions. No pneumothorax. IMPRESSION: No acute process. ACT 112: Negative or not required by law. Electronically signed by: Celso Freeman M.D. 05/29/2022 7:06 PM
--- NOTE | 2022-05-29 19:53 | History & Physical Report ---
Date of Service May 29, 2022 Assessment & Plan (1) Hyponatremia: Plan: - Na 126 both here and on outpatient labs this AM. Serum osm 300, urine osm 293, urine random sodium 22. - Etiology uncertain, he is not hyperglycemic, not s/p prostate sx, no recent mannitol or sorbitol. - Does not appear hyper or hypovolemic. He has swelling of b/l extremities, L > R due to ankle surgery, per patient legs are at baseline. - Add TSH on to AM labs. - Not sure if hyponatremia is causing his falls and forgetfulness--he also reports an occasional tremor with activity, but not at rest. (2) Falls: Plan: - With hyponatremia as above, no known cause. - B12 wnl today on outpatient labs. - Head CT unremarkable. - Lyme IgG negative, IgM equivocal. - Will have PT/OT eval patient. (3) Atrial flutter: Plan: - Continue Eliquis. (4) Hypertension: Plan: - Continue amlodipine, hold lisinopril as this can cause hyponatremia. (5) Hyperlipidemia: Plan: - Continue simvastatin. (6) Gouty arthritis: Plan: - Continue allopurinol. Plan: - Admit to med/tele. - SCDs for DVT ppx. - Full Code. History of Present Illness Chief Complaint: Falls and forgetfulness at home for past week with sodium 126 today Primary Care Provider: Garry Perez DO Charlie Canada is a 67-year-old male with a past medical history significant for hypertension, hyperlipidemia, A flutter with Eliquis, gout, and essential tremor who presents today at the recommendation of his PCP due to low sodium on labs. He was seen as an outpatient today to discuss his frequent falls. The past week he has been falling abruptly while ambulating. He has no loss of consciousness, vertigo, chest pain, palpitations, shortness of breath these in stances, however cannot tell prior to incident happening that he is about to fall. Describes a sensation of losing control of his legs, however it is not isolated to one specific leg. His also notes he has been more forgetful over the past week, noting it started along the same time with falls began. Patient has a history of chronic alcohol abuse, drinking about a sixpack per day most days, however the last several months has weaned down to 1-2 beers at most a day, but does not drink every day. He is a 32 ounce month that he fills up with ice water approximately 3 times a day, estimates his water intake is 100 ounces daily. Rarely does he drink anything else throughout the day, if it is states that 1-2 beers previously mentioned. No recent medication changes, he is not urinating more often, does not feel more thirsty than usual. In ED, hypertensive 160/74, otherwise vitals within normal limits and stable. Hgb 12.1, Na 126, urine Na 22, serum osm 300, urine osm 293. Cr 1.07. CXR and head CT unremarkable. Allergies Allergy/AdvReac Type Severity Reaction Status Date / Time No Known Drug Allergies Allergy Verified 05/29/22 20:11 cat dander AdvReac Unknown Rash Verified 05/29/22 20:11 Home Medications Medication Instructions Recorded Confirmed Type acetaminophen 500 mg tablet 1,000 mg PO Q8 PRN #90 tab 04/29/20 05/29/22 Rx sennosides 8.6 mg tablet (Senokot) 17.2 mg PO HS PRN #28 tab 04/29/20 05/29/22 Rx multivitamin (Daily Multi-Vitamin) 1 tab PO DAILY 04/17/21 05/29/22 History allopurinol 300 mg tablet 300 mg PO QAM #90 tab 01/02/22 05/29/22 Rx lisinopril 20 mg tablet 20 mg PO QAM #90 tab 01/02/22 05/29/22 Rx simvastatin 20 mg tablet 20 mg PO QAM #90 tab 01/02/22 05/29/22 Rx apixaban 5 mg tablet (Eliquis) 5 mg PO BID #180 tab 01/06/22 05/29/22 Rx sildenafil 100 mg tablet 100 mg PO DAILY PRN #20 tab 01/27/22 05/29/22 Rx sodium sul 1.479 gram-potas ch See Rx Instructions PO .COMPLEX 03/09/22 05/29/22 Rx 0.188 gram-magnes sul 0.225 gram #24 tab tablet (Sutab) amlodipine 5 mg tablet 5 mg PO QAM #90 tab 04/01/22 05/29/22 Rx hydroxyzine HCl 25 mg tablet 25 - 50 mg PO HS PRN 05/29/22 05/29/22 History cyanocobalamin (vitamin B-12) 1,000 mcg PO DAILY #30 tab 05/30/22 Rx 1,000 mcg tablet magnesium oxide 500 mg tablet 500 mg PO DAILY #30 tab 05/30/22 Rx Past Med/Surg History Medical History Erectile dysfunction Gouty arthritis Hyperlipidemia Hypertension Plantar fasciitis Polyarthralgia Syncope and collapse Surgical History Hx of colonoscopy S/P foot surgery, right S/P vasectomy Status post left hip replacement Family History Mother , age 84 Myocardial infarction Diabetes CHF (congestive heart failure) Deep vein thrombosis Father , age 84 Prostate cancer Diabetes Hypertension Dyslipidemia PAD (peripheral artery disease) Amputation below knee Denies family history of Colon cancer Ovarian cancer Breast cancer Colorectal cancer Social History Smoking Status: Former smoker Age Quit Using Tobacco: 52; packs per day: 1; Years Smoked: 25; Smoking End Date: 2000; Second Hand Exposure: No; Do You Dip or Chew Tobacco: No; Hx Alcohol Use: Yes Alcohol type: beer and hard liquor Alcohol Intake Frequency: 4 or More x per/Week Alcohol Intake Frequency Comment: nightly - 3-4 beers minimum Hx Substance Use: Yes Prescribed Medications: Marijuana Last Used Substance: Days (ago) Substance Use Type Other:: Medical [facility] Preferred Language: Belgian Communication Ability: Effective Visual Impairment: No Limitations Hearing Ability: Normal 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 Beliefs That Will Affect Care: None marital status: Current Living Situation: Spouse current occupational status: employed current occupation: Self-employed mechanical contractor How many Children do You have: 1 How many Children do You have Comment: from his first marriage; had a step-son but he is now Other Information That Helps Us Care for You: No Feels Safe at Home: Yes Safety Concerns: Feels Safe At This Time Childhood Exposure to Second-Hand Smoke: No caffeine: Yes during the past year weight has: remained stable Dental Care, Regularly: No Physical Activity Frequency: Daily Physical Activity Frequency Comment: Limited by physical condition, tries to walk. Seatbelt Use: always Sunscreen Use: Yes Assistive Devices: Cane, Denture - Upper, Denture - Lower and Glasses Assistive Devices Comment: No cane with patient Review of Systems Review of Systems: Constitutional: No fever/chills, weakness, fatigue, myalgias, anorexia, night sweats Eyes: No diplopia, no worsening or blurred vision ENT: normal hearing, no trouble swallowing Respiratory: No cough, sputum, dyspnea at rest or on exertion Cardiovascular: No chest pain, tightness or palpitations Abdomen: No pain, nausea, vomiting, diarrhea or constipation : Denies dysuria, hematuria, increased urgency/frequency, urinary retention Musculoskeletal: no joint pain, calf pain, swelling Neurologic: No focal weakness, numbness/tingling, or balance problems Psychiatric: forgetful; No anxiety or depression Skin: No rash or itch Physical Exam Physical Exam: General: awake, alert, no apparent distress Head: Normocephalic, atraumatic ENT: PERRL, EOMI, no pharyngeal exudate, mucous membranes moist Chest: Clear to auscultation, on room air, no adventitious breath sounds Cardiac: Regular rate and rhythm, no murmur, no JVD, normal peripheral pulses, good capillary refill Abdominal: NABS x 4 quadrants, soft, nontender to palpation, no rebound, guarding or tenderness Extremities: Normal inspection, no peripheral edema or erythema, calfs nontender to palpation Psych: Normal mood and affect Neuro: AAO x 3, strength intact bilaterally and rated 5/5, no motor deficits, speech is clear, no peripheral sensory deficits Skin: no rash or erythema Results & Data Results & Data ([facility]) Vital Signs (Past 12 Hours) Vital Signs Temp Pulse Pulse Resp BP BP Pulse Ox 05/29/22 18:44 57 L 18 135/77 99 05/29/22 17:53 18 131/75 97 05/29/22 16:31 64 18 119/66 95 05/29/22 15:38 36.8 C 72 18 106/66 96 Laboratory Results Abnormal lab results 05/29/22 05/29/22 05/29/22 Range/Units 15:55 15:55 15:55 RBC 3.40 L (4.63-6.08) M/uL Hgb 12.1 L (14.0-18.0) g/dl Hct 33.0 L (40.1-51.0) % MCH 35.6 H (25.0-34.0) pg MCHC 36.7 H (32.0-36.0) g/dL Neut # (Auto) 7.30 H (1.4-6.5) K/uL Immature Gran # (Auto) 0.05 H (0.00-0.02) K/uL Sodium 126 L (136-145) mmol/L Chloride 97 L (98-107) mmol/L Carbon Dioxide 17 L (21-32) mmol/L Anion Gap 12 H (3-11) BUN 24 H (6-23) mg/dl BUN/Creatinine Ratio 22.4 H (10-20) Total Bilirubin 1.6 H (0.2-1.0) mg/dl Urine Osmolality 293 L (500-800) mOsm/kg Diagnostic Findings Head CT 05/29/22 16:46 CT SCAN OF THE BRAIN WITHOUT IV CONTRAST CLINICAL HISTORY: Falls. COMPARISON STUDY: CT of the brain dated 07/05/2020. TECHNIQUE: Unenhanced axial CT scan of the brain is performed from the vertex to the skull base. A dose lowering technique was utilized adhering to the principles of ALARA. CT DOSE: 628.26 mGycm FINDINGS: Brain parenchyma: There is age-related involutional change noting mild subcortical and periventricular microangiopathic disease. There is no hemorrhage, mass effect, or evidence of acute territorial ischemia by CT criteria. Lang-white matter differentiation is preserved. No extra-axial fluid collection is seen. Ventricles, sulci, cisterns: Prominent secondary to involutional change. Intracranial vasculature: There is atherosclerotic calcification of the cavernous carotid and vertebral arteries. Calvarium: The skeletal structures are osteopenic. No depressed calvarial fracture is identified. Sinuses and mastoids: The visualized paranasal sinuses are clear. The mastoid air cells are well pneumatized. Orbits: The bony orbits are grossly intact. IMPRESSION: There is no hemorrhage, mass effect, or evidence of acute territorial ischemia by CT criteria. ACT 112: Negative or not required by law. Electronically signed by: Ralph Wilde M.D. 05/29/2022 5:37 PM Chest X-Ray 05/29/22 18:42 XR chest 1V portable HISTORY: dizziness, hyponatremia COMPARISON: Chest CT 07/05/2020. FINDINGS: No focal lung consolidations to suggest pneumonia. No evidence for pulmonary edema. The cardiac silhouette is top normal in size. No pleural fusions. No pneumothorax. IMPRESSION: No acute process. ACT 112: Negative or not required by law. Electronically signed by: Celso Freeman M.D. 05/29/2022 7:06 PM Code Status & VTE Plan Code Status Full code. Supervising Physician Co-Signing Physician Notes Attending addendum: I have physically seen this patient, have supervised the TOM's activities, and agree with the H&P unless as otherwise noted. Assessment and Plan: Hyponatremia- Sodium 126, serum osmolality 300, urine osmolality 293, urine sodium 22 Likely associated with beer [place] Repeat laboratories in a.m. If sodium not better, would do a trial of Lasix 40 mg IV to help address lower extremity edema as well Frequent falls- May be secondary to hyponatremia Follow Lyme testing, would consider empiric treatment Consult PT/OT PG Care Time/CCT Total # of Minutes Spent Total Time Spent with Patient: Total time spent is greater than 50% in coordination of care (as documented) at patient's floor/unit and/or counseling patient: Coding Level of Care Code 53504 Initial Inpt Care Lvl 2 Diagnoses Hypertension I10 Hypertension type: essential hypertension Hyperlipidemia E78.2 Hyperlipidemia type: mixed hyperlipidemia Gouty arthritis M10.9 Atrial flutter I48.92 Hyponatremia E87.1 Falls [id number] (1) Hyperlipidemia Hyperlipidemia type: mixed hyperlipidemia Qualified Code(s): E78.2 - Mixed hyperlipidemia (2) Hypertension Hypertension type: essential hypertension Qualified Code(s): I10 - Essential (primary) hypertension
[2022-05-29] MEDS ORDERED: hydrOXYzine HCl 25 MG TAB PO PRN (22:13)
[2022-05-29] MEDS ORDERED: ONDANSETRON INJ 2 MG/ML 2 ML VIAL IV PRN (22:13)
[2022-05-29] MEDS ORDERED: ACETAMINOPHEN 500 MG TAB PO PRN (22:13)
[2022-05-29] MEDS ORDERED: SENNA 8.6 MG TAB PO PRN (22:13)
[2022-05-30] MEDS: APIXABAN 5 MG TABLET PO SCH ×2 (00:43→09:15)
[2022-05-30] MEDS ORDERED: MELATONIN 3 MG TAB PO ONE (01:01)
[2022-05-30 06:30] LABS: Basophils # (auto) 0.08 K/uL (0-0.2); Basophils % (auto) 1.2 %; Eosinophils # (auto) 0.23 K/uL (0-0.50); Eosinophils % (auto) 3.5 %; Hematocrit (blood only) 34.1 % (40.1-51.0); Hemoglobin 12.2 g/dl (14.0-18.0); Immature Granulocytes # (auto) 0.04 K/uL (0.00-0.02); Immature Granulocytes % (auto) 0.6 %; Lymphocytes # (auto) 1.21 K/uL (1.2-3.4); Lymphocytes % (auto) 18.2 %; Mean Corpuscular Hemoglobin 35.4 pg (25.0-34.0); Mean Corpuscular Hgb Conc 35.8 g/dL (32.0-36.0); Mean Corpuscular Volume 98.8 fL (80.0-100.0); Mean Platelet Volume 10.4 fL (9.4-12.4); Monocytes # (auto) 0.64 K/uL (0.24-0.82); Monocytes % (auto) 9.6 %; Neutrophils # (auto) 4.44 K/uL (1.4-6.5); Neutrophils % (auto) 66.9 %; Platelet Count 130 K/uL (130-400); RDW Coefficient of Variation 12.1 % (11.5-14.5); RDW Standard Deviation 43.6 fL (36.4-46.3); Red Blood Count 3.45 M/uL (4.63-6.08); White Blood Count 6.64 K/ul (4.8-10.8)
[2022-05-30 06:54] LABS: BUN Creatinine Ratio 24.2 (10-20); Calcium 8.8 mg/dl (8.5-10.1); Creatinine Clr Calc Pharmacy 107.4 ml/min; Est GFR (African American) 100.7 ml/min; Est GFR (Non-African American) 86.9 ml/min; Magnesium 1.6 mg/dl (1.7-2.4); Potassium 4.6 mmol/L (3.5-5.1)
[2022-05-30] MEDS ORDERED: amLODIPine BESYLATE 5 MG TAB PO SCH (09:00)
[2022-05-30] MEDS ORDERED: allopurinoL 300 MG TAB PO SCH (09:00)
--- NOTE | 2022-05-30 11:21 | Hospitalist Progress Note ---
Date of Service May 30, 2022 Assessment & Plan (1) Hyponatremia: Plan: - Na 126 both here and on outpatient labs this AM. Serum osm 300, urine osm 293, urine random sodium 22. - Etiology uncertain, he is not hyperglycemic, not s/p prostate sx, no recent mannitol or sorbitol. - Does not appear hyper or hypovolemic. He has swelling of b/l extremities, L > R due to ankle surgery, per patient legs are at baseline. - Add TSH on to AM labs. - Not sure if hyponatremia is causing his falls and forgetfulness--he also reports an occasional tremor with activity, but not at rest. (2) Falls: Plan: - With hyponatremia as above, no known cause. - B12 wnl today on outpatient labs. - Head CT unremarkable. - Lyme IgG negative, IgM equivocal. - Will have PT/OT eval patient. (3) Atrial flutter: Plan: - Continue Eliquis. (4) Hypertension: Plan: - Continue amlodipine, hold lisinopril as this can cause hyponatremia. (5) Hyperlipidemia: Plan: - Continue simvastatin. (6) Gouty arthritis: Plan: - Continue allopurinol. Plan: - Admit to med/tele. - SCDs for DVT ppx. - Full Code. Admission and Anticipated Discharge Date Admission Date: May 29, 2022 Subjective Attending: Dr. Cameron Oconnell This is a 67-year-old male that was admitted yesterday for hyponatremia. He has a past medical history that includes ED, gouty arthritis, HLD, HTN, polyarthralgia, syncope, dysphagia, alcohol dependence, anemia, sleep disorder, atrial flutter, benign essential tremor, frequent falls. Patient presented at the recommendation of his PCP due to hyponatremia on his routine labs. Patient does admit to frequent falls over the last week. Patient currently drinks 1-2 beers a day. Patient's presenting sodium on admission was 126 mmol/L. This morning reveals 129 mmol/L. Patient currently not receiving any IV fluids. Lisinopril has been held. Chest x-ray shows no evidence of pulmonary edema. Most recent echocardiogram performed 05/01/2021 shows preserved left ventricular ejection fraction with no significant valvular disease. Results & Data Results & Data ([facility]) Vital Signs (Past 12 Hours) Vital Signs Temp Pulse Pulse Resp BP Pulse Ox Pulse Ox 05/30/22 08:00 63 05/30/22 07:18 36.5 C 71 18 119/72 95 05/30/22 03:07 36.8 C 78 18 93/56 L 96 05/29/22 23:16 73 97 PG Care Time/CCT Total # of Minutes Spent Total Time Spent with Patient: Total time spent is greater than 50% in coordination of care (as documented) at patient's floor/unit and/or counseling patient: Coding Diagnoses Hyponatremia E87.1 Falls [id number] Atrial flutter I48.92 Hypertension I10 Hypertension type: essential hypertension Hyperlipidemia E78.2 Hyperlipidemia type: mixed hyperlipidemia Gouty arthritis M10.9 (1) Hypertension Hypertension type: essential hypertension Qualified Code(s): I10 - Essential (primary) hypertension (2) Hyperlipidemia Hyperlipidemia type: mixed hyperlipidemia Qualified Code(s): E78.2 - Mixed hyperlipidemia
[2022-05-30] MEDS ORDERED: SODIUM CHLORIDE 0.9% 1000ML 1,000 ML IV SCH (14:45)
[2022-05-30] MEDS: MAGNESIUM SULFATE / D5W 1 GM/100 ML BAG IV SCH ×2 (15:27→17:21)
[2022-05-30] MEDS ORDERED: SIMVASTATIN 20 MG TAB PO SCH (21:00)
--- NOTE | 2022-06-15 11:51 | Discharge Summary ---
Date of Service May 30, 2022 Admission HPI Per Admitting Provider Charlie Canada is a 67-year-old male with a past medical history significant for hypertension, hyperlipidemia, A flutter with Eliquis, gout, and essential tremor who presents today at the recommendation of his PCP due to low sodium on labs. He was seen as an outpatient today to discuss his frequent falls. The past week he has been falling abruptly while ambulating. He has no loss of consciousness, vertigo, chest pain, palpitations, shortness of breath these instances, however cannot tell prior to incident happening that he is about to fall. Describes a sensation of losing control of his legs, however it is not isolated to one specific leg. His also notes he has been more forgetful over the past week, noting it started along the same time with falls began. Patient has a history of chronic alcohol abuse, drinking about a sixpack per day most days, however the last several months has weaned down to 1-2 beers at most a day, but does not drink every day. He is a 32 ounce month that he fills up wi th ice water approximately 3 times a day, estimates his water intake is 100 ounces daily. Rarely does he drink anything else throughout the day, if it is states that 1-2 beers previously mentioned. No recent medication changes, he is not urinating more often, does not feel more thirsty than usual. In ED, hypertensive 160/74, otherwise vitals within normal limits and stable. Hgb 12.1, Na 126, urine Na 22, serum osm 300, urine osm 293. Cr 1.07. CXR and head CT unremarkable. Admission Exam Per Admitting Provider General: awake, alert, no apparent distress Head: Normocephalic, atraumatic ENT: PERRL, EOMI, no pharyngeal exudate, mucous membranes moist Chest: Clear to auscultation, on room air, no adventitious breath sounds Cardiac: Regular rate and rhythm, no murmur, no JVD, normal peripheral pulses, good capillary refill Abdominal: NABS x 4 quadrants, soft, nontender to palpation, no rebound, guarding or tenderness Extremities: Normal inspection, no peripheral edema or erythema, calfs nontender to palpation Psych: Normal mood and affect Neuro: AAO x 3, strength intact bilaterally and rated 5/5, no motor deficits, speech is clear, no peripheral sensory deficits Skin: no rash or erythema Principal Diagnosis Hyponatremia Discharge Exam GENERAL : No acute distress EYES: No icterus, gaze conjugate NOSE: No evidence of epistaxis MOUTH: No lesions or candidiasis NECK: Supple LUNGS: CTA B/L, no wheezes, rales or rhonchi HEART: Regular, rate controlled ABDOMEN: Soft, NT, ND, BS Present EXTREMITIES: No LE edema, pedal pulses intact NEURO: A&OX3. No apparent cognitive deficit. Son is in room and notices no neurological changes. Discharge Data Allergies Allergy/AdvReac Type Severity Reaction Status Date / Time No Known Drug Allergies Allergy Verified 05/29/22 20:11 cat dander AdvReac Unknown Rash Verified 05/29/22 20:11 Consultations 05/29/22 18:34 ED Decision to Admit Stat Ordered Studies 05/29/22 16:46 CCT SCAN OF THE BRAIN WITHOUT IV CONTRAST CLINICAL HISTORY: Falls. COMPARISON STUDY: CT of the brain dated 07/05/2020. TECHNIQUE: Unenhanced axial CT scan of the brain is performed from the vertex to the skull base. A dose lowering technique was utilized adhering to the principles of ALARA. CT DOSE: 628.26 mGycm FINDINGS: Brain parenchyma: There is age-related involutional change noting mild subcortical and periventricular microangiopathic disease. There is no hemorrhage, mass effect, or evidence of acute territorial ischemia by CT criteria. Lang-white matter differentiation is preserved. No extra-axial fluid collection is seen. Ventricles, sulci, cisterns: Prominent secondary to involutional change. Intracranial vasculature: There is atherosclerotic calcification of the cavernous carotid and vertebral arteries. Calvarium: The skeletal structures are osteopenic. No depressed calvarial fracture is identified. Sinuses and mastoids: The visualized paranasal sinuses are clear. The mastoid air cells are well pneumatized. Orbits: The bony orbits are grossly intact. IMPRESSION: There is no hemorrhage, mass effect, or evidence of acute territorial ischemia by CT criteria. ACT 112: Negative or not required by law. Electronically signed by: Ralph Wilde M.D. 05/29/2022 5:37 PM T head/brain wo con Stat Hospital Course (1) Hyponatremia: - Na 126 both here and on outpatient labs on the day of admission. - Serum osm 300, urine osm 293, urine random sodium 22. -Review of outpatient records show that sodium was in the low 130s in 2018 - Etiology uncertain, he is not hyperglycemic, not s/p prostate sx, no recent mannitol or sorbitol. - Does not appear hyper or hypovolemic. He has swelling of b/l extremities, L > R due to ankle surgery, per patient legs are at baseline. - TSH 2.593 -Doubt that hyponatremia is causing his falls and forgetfulness as this seems to be somewhat chronic. Sodium improved from 1 26-1 29 with decreased fluid intake. 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 Avoid salt tablets secondary to high blood pressure (2) Falls: - With hyponatremia as above, no known cause. - B12 wnl today on outpatient labs but was also low normal. Recommend B12 supplementation. - Would also recommend magnesium supplementation. - Head CT unremarkable. - Lyme IgG negative, IgM equivocal. Outpatient follow-up with PCP (3) Atrial flutter: - Continue Eliquis as prescribed as an outpatient - Magnesium was slightly low. Would recommend magnesium supplementation - Avoid alcohol intake as this can exacerbate atrial arrhythmias (4) Hypertension: - Continue amlodipine - Lisinopril was held during the hospital stay as this can cause hyponatremia. In review of outpatient records, it was decided that we would continue lisinopril on discharge secondary to patient's blood pressure. - Continue to follow blood pressure at home and with primary care physician (5) Hyperlipidemia: - Continue simvastatin. (6) Gouty arthritis: - Continue allopurinol. Plan Patient was was admitted to the telemetry unit. There was no evidence of a rrhythmia other than the atrial flutter during his hospital stay. Patient had no syncope or presyncope. He denied any lightheadedness or dizziness. Continue with plan above and follow-up with primary care physician within the next 7 to 10 days. Total Time Total Time Spent Total Time Spent (In Minutes): 50 minutes Discharge Plan Discharge Items Patient Disposition: Home - Self-Care Reason For Visit: HYPONATREMIA Discharge Diagnosis: Primary polydipsia - increased free water intake causng low sodium Activity: Resume your previous activity Non-emergency contact: Primary Care Provider Call non-emergency contact if: your symptoms worsen Follow-up/Referrals: Garry Perez, [Primary Care Provider] - Diet: Regular Fluids: 1200ml (5 cups) Ambulatory Orders: Basic Metabolic Panel (Routine) Timeframe: 1 Week Location: Determined by Patient Ordered By: Cameron Rivera Attending Provider Instructions: You were admitted to [facility] from May 29 - 2021 due to recurrent falls with low sodium on outpatient labs. This improved from 126 to 129 with decreased fluid intake and given history and urine/serum osmolality this is most consistent with primary polydipsia - increased free water intake which can lower your sodium. Given your high blood pressure recommend rather than adding salt we restrict your free water intake to 5 cups a day or 1200ml. Please follow up with your primary care physician with repeat labs in approximately 1 week. Please also follow up with your PCP for outstanding outpatient labs including lyme antibodies. Your B12 was also low normal and recommend B12 supplementation for this as prescribed as this can cause worsening balance due to decreased proprioception. Also recommend magnesium supplementation as this was also low b ut is less likely a cause of your falls. Pending Studies at Discharge: No Stand-Alone Forms: My [facility], Smoking Cessation Medications and DC Order Prescriptions: New cyanocobalamin (vitamin B-12) 1,000 mcg tablet 1,000 mcg PO DAILY Qty: 30 0RF magnesium oxide 500 mg tablet 500 mg PO DAILY Qty: 30 0RF Continued allopurinol 300 mg tablet 300 mg PO QAM Qty: 90 1RF lisinopril 20 mg tablet 20 mg PO QAM Qty: 90 1RF simvastatin 20 mg tablet 20 mg PO QAM Qty: 90 1RF Eliquis 5 mg tablet 5 mg PO BID Qty: 180 1RF Sutab 1.479-0.188- 0.225 gram tablet See Rx Instructions PO .COMPLEX Qty: 24 0RF Rx Instructions: Take per split dose instructions. PLEASE USE COUPON BIN: [id number] PCN: CN GROUP#: [id number] amlodipine 5 mg tablet 5 mg PO QAM Qty: 90 1RF multivitamin [Daily Multi-Vitamin] Tablet 1 tab PO DAILY sildenafil 100 mg tablet 100 mg PO DAILY PRN (Reason: sexual activity) Qty: 20 5RF acetaminophen 500 mg Tablet 1,000 mg PO Q8 PRN (Reason: pain) Qty: 90 0RF sennosides [Senokot] 8.6 mg Tablet 17.2 mg PO HS PRN (Reason: constipation) Qty: 28 0RF hydroxyzine HCl 25 mg tablet 25 - 50 mg PO HS PRN (Reason: sleep) Discharge Orders: Discharge Order (Routine); Ordered 05/30/22 Ordered By: Cameron Oconnell Admission Data Admit Date/Time: 05/29/22 21:03 Attending Provider: Cameron Oconnell Admit Provider: Celestine Silva Primary Care Provider: Garry Perez Other Providers: Celestine Silva Other Interventions: Discharge Summary Assessment (RN) Last Done: 05/30/22 19:03 Supervising Physician Co-Signing Physician Notes I personally saw and examined the patient. I verified all hargrove points and agree with Ralph Bolanos PA-C with the following exceptions and/or additions: 67 year old male admitted to [facility] from May 29 - 2021 due to recurrent falls with low sodium on outpatient labs. This improved from 126 to 129 with decreased fluid intake and given history and urine/serum osmolality this is most consistent with primary polydipsia. Given his high blood pressure recommend rather than adding salt we restrict free water intake to 5 cups a day or 1200ml. Recommend PCP follow up to monitor sodium level. Low suspicion of lyme disease however lyme antibodies outstanding on discharge - follow up with PCP. B12 was also low normal and recommend B12 supplementation for this as prescribed as could be causing his reduced balance. Mg level also low @ 1.6 and supplementation recommended. Coding Level of Care Code D/C DAY MANAGEMENT >30 MINS Diagnoses Hyponatremia E87.1 Falls W19.XXXA Atrial flutter I48.92 Hypertension I10 Hypertension type: essential hypertension Hyperlipidemia E78.2 Hyperlipidemia type: mixed hyperlipidemia Gouty arthritis M10.9
== END 2022-05-30 19:28 | disposition home or self-care (01) ==
LOC: ED 15:30 → 2W 21:03 → SUATTDRO 21:03 → INTOOBSV 21:03 → 2W 21:56